=== PATIENT | female | born 1950 | race Caucasian/White ===

== ENCOUNTER 2023-10-09 04:14 | Emergency (ER) | payer MEDICARE, OTHER, SELFPAY ==
[2023-10-09 04:16] VITALS: BP 113/71; PULSE 93; RESP 19; TEMP 36.4; O2SAT 95; BMI 25.7
--- NOTE | 2023-10-09 04:45 | RAD_ITS ---
EXAM: XR CHEST, 2 VIEWS CLINICAL INDICATION: Dyspnea TECHNIQUE: Frontal and lateral views of the chest. COMPARISON: No relevant prior studies available. FINDINGS: LUNGS AND PLEURAL SPACES: The lungs are well-inflated. There are mildly coarse increased interstitial markings in the lower lung vela and mild increased lucency in the upper lung vela suggesting COPD. No pneumothorax. No effusion. HEART: Unremarkable. Cardiac silhouette not enlarged. MEDIASTINUM: Central airways and mediastinal contour are unremarkable. BONES/JOINTS: Unremarkable. No acute fracture. SOFT TISSUES: Unremarkable. RAD/Chest PA and Lateral IMPRESSION: Mild chronic-appearing lung changes. No acute intrathoracic abnormality. Electronically Signed: Rosario Chicas MD at 5:20 EDT ,
[2023-10-09] MEDS: MethylPREDNISolone 125 MG/2 ML Vial IV (05:07)
[2023-10-09] MEDS: Orphenadrine 60 MG/2 ML Ampul IV (05:07)
[2023-10-09 05:32] LABS: Absolute Lymphocyte Count 1.82 X10^3/uL (0.83-4.51); Absolute Neutrophil Count 4.5 X10^3/uL (2.0-7.7); Basophil# 0.06 X10^3/uL; Basophil% 0.8 % (0-1); Eosinophil# 0.12 X10^3/uL; Eosinophils% 1.6 % (0-5); Hematocrit 36.6 % (37-47); Hemoglobin 11.5 g/dL (12.0-15.0); Lymphocyte # 1.82 X10^3/ul (0.83-4.51); Lymphocyte % 24.6 % (19-41); Mean Corp Hgb Conc 31.4 g/dL (32-36); Mean Corpuscular Hgb 28.5 pg (27.0-32.0); Mean Corpuscular Volume 90.8 fL (81-99); Mean Platelet Vol. 8.9 fl (6.2-12.0); Monocyte# 0.78 X10^3/uL; Monocyte% 10.5 % (0-10); NRBC Flagged by Analyzer 0 % (0-5); Neutrophil # 4.53 X10^3/uL (2.7-7.7); Neutrophil % 61.3 % (47-70); Platelet Count 411 K/mm3 (150-450); RBC Distribution Width CV 14.7 % (11.6-14.6); RBC Distribution Width SD 49.1 fl (35.1-43.9); Red Blood Count 4.03 M/mm3 (4.2-5.4); White Blood Count 7.4 K/mm3 (4.4-11.0)
[2023-10-09 05:33] LABS: AST(SGOT) 48 U/L (15-37); Alanine Aminotransfer ALT/SGPT 37 U/L (13-56); Albumin, Serum 2.5 g/dL (3.2-5.0); Alkaline Phosphatase 45 U/L (45-117); Anion Gap 5 (5-15); BUN 14 mg/dL (7-18); BUN/Creat Ratio 17.5 RATIO (10-20); Bilirubin, Direct 0.08 mg/dL (0.00-0.30); CPK Total, Creatine Kinase 194 U/L (26-192); Calcium,Total 8.8 mg/dL (8.5-10.1); Chloride 106 mmol/L (98-107); EST Glomerular Filtration Rate 75 mL/min (>60); Est Glom Filt Rate - Afr Amer 90 mL/min (>60); Estimated Creatinine Clearance 55.77 ml/min; Globulin 3.9 g/dL (2.2-4.2); Glucose 111 mg/dL (74-106); Lipase 44 U/L (13-75); Potassium 4.2 mmol/L (3.5-5.1); Protein, Total 6.4 g/dL (6.4-8.2); Sodium Level 135 mmol/L (136-145)
[2023-10-09 05:38] LABS: Erythrocyte Sedimentation Rate 45 mm/hr (0-30)
[2023-10-09 05:45] VITALS: BP 107/62; PULSE 77; RESP 20
[2023-10-09 05:51] LABS: Acetaminophen (Tylenol) Level < 2.0 ug/mL (10.0-30.0); Salicylate < 1.7 mg/dL (2.8-20.0)
[2023-10-09 06:00] VITALS: BP 110/74; PULSE 79; RESP 21
--- NOTE | 2023-10-09 06:33 | EDS_ITS ---
HPI History of Present Illness Chief Complaint: General Illness Informant: patient and spouse/S.O. Narrative Narrative: Patient is a 73-year-old female with past medical history of hyperlipidemia. She states she was on rosuvastatin but stopped it 3 weeks ago secondary to back and leg pain. She states that since stopping it she is developed generalized muscle aches and feels like her legs have swollen as well. She denies any other medication but states that as she feels her symptoms have worsened despite stopping her medication she presents for evaluation [facility] Medical History no medical history Home Medications methocarbamol 500 mg tablet 500 mg PO 4X/DAY PRN Muscle pain/spasm #40 tabs 10/09/23 [Rx Last Taken Unknown] prednisone 10 mg tablet 10 mg PO DAILY #45 TABLETS 10/09/23 [Rx Last Taken Unknown] Allergy/AdvReac Type Severity Reaction Status Date / Time No Known Allergies Allergy Verified 10/09/23 05:15 Social History Smoking Status: Never smoker ROS [facility] ED Constitutional Constitutional ED: Denies chills or fever(s) ENT ENT ED: Denies sore throat Cardiovascular Cardiovascular: Reports other Details: Positive leg swelling ; Denies chest pain Respiratory/Chest Respiratory/Chest: Denies cough or dyspnea Gastrointestinal Gastrointestinal: Denies abdominal pain, diarrhea, nausea or vomiting Genitourinary Genitourinary ED: Denies dysuria Musculoskeletal Musculoskeletal: Reports myalgias Integumentary Denies rash Neurologic Neurologic: Denies headache(s) Hematologic/Lymphatic Hematologic/Lymphatic: Denies easy bleeding or easy bruising EXAM Physical Exam Const Vital Signs: 10/09/23 04:16 10/09/23 04:21 10/09/23 05:45 Temperature 97.6 F L Temperature Source Oral Pulse Rate 93 77 Respiratory Rate 19 H 20 H Respiratory Effort Normal Blood Pressure 113/71 107/62 Blood Pressure Mean 85 76 Pulse Ox 95 Oxygen Delivery Method Room Air 10/09/23 06:00 Temperature Temperature Source Pulse Rate 79 Respiratory Rate 21 H Respiratory Effort Blood Pressure 110/74 Blood Pressure Mean 85 Pulse Ox Oxygen Delivery Method Positive well nourished and well developed General Appearance ED: well developed; Negative for pallor HEENT Reports dry mucous membranes HEENT Narrative: No tongue or lip swelling no oral lesions no airway edema or compromise Patient's mucous membranes are dry and tacky without secondary changes to suggest infection Mouth ED: Yes dry mucous membranes Mouth: dry mucous membranes Eyes PERRL and EOMs intact bilaterally Neck supple Neck Narrative: No nuchal rigidity or meningeal signs noted Resp normal respiratory effort and clear to auscultation bilaterally Resp Narrative: No nasal flaring retractions tachypnea or accessory muscle use Cardio regular rate and regular rhythm Rate: other Other Details: Radial and carotid pulses are equal and symmetric GI normal to inspection, nondistended, normoactive bowel sounds, non-tender, non- distended and no masses GI Narrative: No voluntary guarding or rigidity or pulsatile mass Auscultation: normoactive bowel sounds Palpation: soft Extremity Extremity Narrative: Patient has trace pitting edema to the bilateral lower extremities that is equal and symmetric Negative Homans' sign bilaterally No obvious bony deformity or joint effusion Lower leg compartments are soft and compressible going against compartment syndrome Neuro oriented x3, CN's II-XII intact bilaterally and no sensory deficits noted Sensorium / Orientation: alert Motor Exam: strength 5/5 throughout Psych Psych Narrative: Patient has a nervous/anxious affect Skin no rashes or lesions noted and no wounds General Skin Exam: Negative for jaundice or pallor MDM MDM MDM Narrative Medical decision making narrative: Patient arrived to the ER with stable vitals. She reported myalgias and leg swelling and states this worsened after stopping her statin medication. Differential diagnosis is for electrolyte abnormality versus acute kidney injury versus rhabdomyolysis versus decreased protein and albumin values versus autoimmune disorder. Secondary to his basic labs were obtained. Patient does have elevation to her immature granulocytes as well as her monocytes and her ESR and CRP are elevated concerning for an inflammatory process. However her kidney function is normal as well as her liver enzymes going against acute kidney injury or ascites/cirrhosis as a cause of her swelling. Patient's protein level is low normal and her albumin is decreased indicating the swelling is most likely third spacing and secondary to a low protein and albumin level. She does not have findings consistent or concerning for DVT infection or compartment syndrome. At this time as workup is indicated and this is most likely inflammatory and not secondary to an infectious process or cirrhosis or heart failure I do not feel there is need for further workup on an inpatient basis. Patient be placed on a prednisone taper to help control the inflammatory process while she is fine with her family practice doctor to discuss further outpatient testing or referrals History & Record Review Discussion w/independent historian: Patient and Significant other Lab Data Labs: Laboratory Results - last 24 hr 10/09/23 10/09/23 04:28 05:05 WBC 7.4 RBC 4.03 L Hgb 11.5 L Hct 36.6 L MCV 90.8 MCH 28.5 MCHC 31.4 L RDW Std Deviation 49.1 H RDW Coeff of Shaniqua 14.7 H Plt Count 411 MPV 8.9 Immature Gran % (Auto) 1.200 H Neut % (Auto) 61.3 Lymph % (Auto) 24.6 Love % (Auto) 10.5 H Eos % (Auto) 1.6 Baso % (Auto) 0.8 Absolute Neuts (auto) 4.5 Absolute Lymphs (auto) 1.82 Nucleated RBC % 0 ESR 45 H Sodium 135 L Potassium 4.2 Chloride 106 Carbon Dioxide 24.0 Anion Gap 5 BUN 14 Creatinine 0.80 Estim Creat Clear Calc 55.77 Est GFR (MDRD) Af Amer 90 Est GFR (MDRD) Non-Af 75 BUN/Creatinine Ratio 17.5 Glucose 111 H Calcium 8.8 Total Bilirubin 0.50 Direct Bilirubin 0.08 AST 48 H ALT 37 Alkaline Phosphatase 45 Total Creatine Kinase 194 H C-React Prot Ext Range 24.90 H B-Natriuretic Peptide 23.0 Total Protein 6.4 Albumin 2.5 L Globulin 3.9 Lipase 44 Salicylates < 1.7 L Acetaminophen < 2.0 L Radiography Diagnostic Testing: Clinical Impression(s) from Imaging Studies Chest X-Ray 10/09/23 04:45 IMPRESSION: Mild chronic-appearing lung changes. No acute intrathoracic abnormality. Electronically Signed: Rosario Chicas MD at 5:20 EDT , Chest x-ray as interpreted by the emergency medicine physician reveals chronic lung changes without acute pneumonia pleural effusion or pneumothorax Discharge Plan Triage Chief Complaint: General Illness ED Provider: Aaron Horne Dx/Rx/DC Orders Clinical Impression: Myalgia, Hypoalbuminemia, Hyperlipidemia Instructions: ED Myalgias Prescriptions: New methocarbamol 500 mg tablet 500 mg PO 4X/DAY PRN (Reason: Muscle pain/spasm) Qty: 40 0RF prednisone 10 mg tablet 10 mg PO DAILY Qty: 45 0RF Rx Instructions: 5 po qd x 3 days, 4 po qd x 3 days, 3 po qd x 3 days, 2 po qd x 3 days, 1 po qd x 3 days Primary Care Provider: Karol Trevizo Referrals: Fady Robretson MD [Med Staff - Editorial Project Manager] - Karol Trevizo NP-C [Primary Care Provider] - Activity Restrictions/Additional Instructions: Please increase your protein intake as your labs show a low albumin level which is most likely the cause of your leg swelling. Take the steroid as directed as your labs show inflammatory changes which could be related to potential autoimmune disease and therefore you will need to follow-up with your doctor to have further testing obtained to further diagnosis. Do not take your meloxicam until you have finished the prednisone. Return to the ER should you have any further concerns Disposition Disposition: Home, Self Care
[2023-10-09 06:56] VITALS: BP 112/61; PULSE 85; RESP 24; TEMP 36.7; O2SAT 94
== END 2023-10-09 06:59 | disposition home or self-care (01) ==
PROVIDERS: Emergency Provider Emergency Medicine; PCP Nurse Practitioner Family; Visit Provider Emergency Medicine
DX: E88.09 Other disorders of plasma-protein metabolism, not elsewhere classified (principal); E78.5 Hyperlipidemia, unspecified; M79.10 Myalgia, unspecified site; R06.09 Other forms of dyspnea
CPT/HCPCS: 71046; 80048; 80076; 80329; 82550; 83690; 83880; 85025; 85652; 86140; 96374; 96375; 99283; A4216; G0480

== ENCOUNTER 2023-10-27 16:06 | Outpatient (CLI) | payer MEDICARE, OTHER, SELFPAY ==
--- NOTE | 2023-10-27 16:10 | RAD_ITS ---
EXAM: XR CHEST, 2 VIEWS CLINICAL INDICATION: sob TECHNIQUE: Frontal and lateral views of the chest. COMPARISON: October 09, 2023 FINDINGS: Worsening airspace disease involving the bilateral lower lobes in the interval, left worse than right. Blunting of the left costophrenic angle such that a small pleural effusion is not excluded. No pneumothorax. No other changes. RAD/Chest PA and Lateral IMPRESSION: Worsening bibasilar pneumonia suspected. Follow-up advised. Electronically Signed: Aaron Fernandez MD at 4:13 EDT ,
[2023-10-27 17:52] LABS: Absolute Lymphocyte Count 2.66 X10^3/uL (0.83-4.51); Absolute Neutrophil Count 7.7 X10^3/uL (2.0-7.7); Basophil# 0.08 X10^3/uL; Basophil% 0.7 % (0-1); Eosinophil# 0.11 X10^3/uL; Eosinophils% 0.9 % (0-5); Hematocrit 39.7 % (37-47); Hemoglobin 12.4 g/dL (12.0-15.0); Lymphocyte # 2.66 X10^3/ul (0.83-4.51); Lymphocyte % 22.6 % (19-41); Mean Corp Hgb Conc 31.2 g/dL (32-36); Mean Corpuscular Hgb 28.4 pg (27.0-32.0); Mean Corpuscular Volume 90.8 fL (81-99); Mean Platelet Vol. 9.4 fl (6.2-12.0); Monocyte% 9.3 % (0-10); NRBC Flagged by Analyzer 0 % (0-5); Neutrophil # 7.67 X10^3/uL (2.7-7.7); Neutrophil % 65.1 % (47-70); Platelet Count 429 K/mm3 (150-450); RBC Distribution Width CV 16.2 % (11.6-14.6); RBC Distribution Width SD 54.1 fl (35.1-43.9); Red Blood Count 4.37 M/mm3 (4.2-5.4); White Blood Count 11.8 K/mm3 (4.4-11.0)
[2023-10-27 18:03] LABS: Erythrocyte Sedimentation Rate 41 mm/hr (0-30)
[2023-10-27 18:22] LABS: Hemoglobin A1c 5.6 % (3.8-5.6)
[2023-10-27 18:58] LABS: ALB/GLOB Ratio 0.5 RATIO (0.9-2.4); AST(SGOT) 82 U/L (15-37); Alanine Aminotransfer ALT/SGPT 74 U/L (13-56); Albumin, Serum 2.4 g/dL (3.2-5.0); Alkaline Phosphatase 45 U/L (45-117); Anion Gap 7 (5-15); BUN 19 mg/dL (7-18); BUN/Creat Ratio 17.1 RATIO (10-20); CPK Total, Creatine Kinase 480 U/L (26-192); Calcium,Total 8.7 mg/dL (8.5-10.1); Chloride 103 mmol/L (98-107); Cholesterol 212 mg/dL (200); Creatinine, Serum 1.11 mg/dL (0.55-1.02); EST Glomerular Filtration Rate 51 mL/min (>60); Est Glom Filt Rate - Afr Amer 62 mL/min (>60); Ferritin 2005 ng/mL (8-252); Globulin 4.4 g/dL (2.2-4.2); Glucose 127 mg/dL (74-106); High Density Lipoprotein 29 mg/dL; Magnesium 2.2 mg/dL (1.6-2.6); Potassium 4.1 mmol/L (3.5-5.1); Protein, Total 6.8 g/dL (6.4-8.2); Sodium Level 134 mmol/L (136-145); Triglycerides 277 mg/dL; Very Low Density Lipoprotein 55 mg/dL (5-40)
[2023-10-29 13:08] LABS: CCP IgG Antibodies 5 units (0-19); Lyme Scn Total Ab w/Rflx Negative (Negative)
[2023-10-29 16:09] LABS: ANTINUCLEAR ANTIBODIES DIRECT Positive (Negative)
== END 2023-10-27 23:59 | disposition home or self-care (01) ==
LOC: MTLAB 16:07
PROVIDERS: PCP Family Medicine; Referring Provider Family Medicine; Visit Provider Family Medicine
DX: R06.02 Shortness of breath (principal); M79.10 Myalgia, unspecified site; R73.02 Impaired glucose tolerance (oral); R76.8 Other specified abnormal immunological findings in serum; R74.8 Abnormal levels of other serum enzymes
CPT/HCPCS: 36415; 71046; 80053; 80061; 82550; 82728; 83036; 83735; 85025; 85652; 86038; 86200; 86431; 86618

== ENCOUNTER → 2023-10-28 | Outpatient (CLI) | payer MEDICARE, OTHER, SELFPAY ==
[2023-10-28 17:58] LABS: Anion Gap 6 (5-15); BUN 18 mg/dL (7-18); CPK Total, Creatine Kinase 483 U/L (26-192); Calcium,Total 8.6 mg/dL (8.5-10.1); Chloride 104 mmol/L (98-107); EST Glomerular Filtration Rate 65 mL/min (>60); Est Glom Filt Rate - Afr Amer 79 mL/min (>60); Glucose 103 mg/dL (74-106); Potassium 4.7 mmol/L (3.5-5.1); Sodium Level 135 mmol/L (136-145)
[2023-10-28 18:50] LABS: Hepatitis B Surface Antibody Non-Reactive; Hepatitis B Surface Antigen Non-Reactive (Nonreactive); Hepatitis C Antibody Non-Reactive (Nonreactive)
[2023-10-30 10:41] LABS: ALB/GLOB Ratio 1.1 RATIO (0.9-2.4); AST(SGOT) 20 U/L (15-37); Alanine Aminotransfer ALT/SGPT 26 U/L (13-56); Albumin, Serum 3.9 g/dL (3.2-5.0); Alkaline Phosphatase 61 U/L (45-117); Globulin 3.5 g/dL (2.2-4.2); Protein, Total 7.4 g/dL (6.4-8.2)
== END | disposition home or self-care (01) ==
LOC: MFPLAB 15:21
PROVIDERS: PCP Family Medicine; Visit Provider Family Medicine
DX: R74.8 Abnormal levels of other serum enzymes (principal); R79.89 Other specified abnormal findings of blood chemistry; R94.4 Abnormal results of kidney function studies; R06.02 Shortness of breath
CPT/HCPCS: 36415; 80048; 82040; 82247; 82550; 84075; 84156; 84450; 84460; 86706; 86803; 87340

== ENCOUNTER → 2023-10-30 | Outpatient (CLI) | payer MEDICARE, OTHER, SELFPAY ==
--- NOTE | 2023-10-30 09:42 | ECHOD_ITS ---
Reason For Study: SOB Procedure This was a 2D Doppler, Color Flow transthoracic echocardiogram. The study was technically difficult. Exam performed in department. Left Ventricle Normal LV size. D shaped septum in diastole. Left ventricular systolic function is normal. The left ventricular ejection fraction is 55 %. Stage 1 diastolic dysfunction. No regional wall motion abnormalities noted. Right Ventricle Normal RV size. Normal systolic function. Atria Normal left atrium. Normal right atrium. Mitral Valve Bileaflet diffuse mitral valve thickening. Tricuspid Valve Normal tricuspid valve. Moderate (2+) tricuspid valve insufficiency. Pulmonary artery systolic pressure is 65 mmHg. Moderate pulmonary hypertension. Aortic Valve Trisinus/trileaflet aortic valve. Pulmonic Valve Normal pulmonic valve. Great Vessels Normal aortic root. The pulmonary artery is normal size. Inferior vena cava collapse with respiration. Pericardium/Pleural No pericardial effusion. MMode/2D Measurements & Calculations LVIDd: 4.1 cm IVSd: 0.96 cm LA dimension: 3.0 cm LVIDs: 2.7 cm LVPWd: 0.82 cm RVDd: 3.5 cm FS: 34.9 % LAV(MOD-bp): 42.1 ml LA A4 area: 17.2 cm2 RA A4 area: 11.2 cm2 LAV(MOD-bp) Indexed: 25.1 ml/m2 LAV(MOD-sp2): 38.8 ml LAV(MOD-sp4): 44.9 ml TAPSE: 2.3 cm Time Measurements MV dec time: 0.22 sec Doppler Measurements & Calculations MV E max viet: 60.6 cm/sec Lat Peak E' Viet: 9.7 cm/sec Med Peak E' Viet: 10.4 cm/sec MV A max viet: 98.1 cm/sec E/E' lat: 6.3 E/E' med: 5.8 MV E/A: 0.62 MV V2 max: 108.5 cm/sec MV P1/2t max viet: 76.3 cm/sec Ao V2 max: 156.0 cm/sec MV max P.7 mmHg MV P1/2t: 84.1 msec Ao max P.7 mmHg MV V2 mean: 58.1 cm/sec MV mean P.6 mmHg MV dec slope: 265.9 cm/sec2 MV V2 VTI: 20.7 cm MVA(P1/2t): 2.6 cm2 LV V1 max: 141.8 cm/sec PA V2 max: 102.1 cm/sec TR max viet: 394.4 cm/sec LV V1 max P.1 mmHg TR max P.2 mmHg ECHO/Echo Complete Interpretation Summary Normal LV size. Left ventricular systolic function is normal. The left ventricular ejection fraction is 55 %. Stage 1 diastolic dysfunction. Pulmonary artery systolic pressure is 65 mmHg. Moderate pulmonary hypertension. D shaped septum in diastole. Ordering Physician: Fady Robertson Referring Physician: Fady Robertson Performed By: Manjinder Guevara RCS
== END | disposition home or self-care (01) ==
LOC: CVS 09:39
PROVIDERS: PCP Family Medicine; Referring Provider Family Medicine; Visit Provider Family Medicine
DX: Z79.899 Other long term (current) drug therapy (principal); R06.02 Shortness of breath
CPT/HCPCS: 93306

== ENCOUNTER → 2023-11-12 | Outpatient (CLI) | payer MEDICARE, OTHER, SELFPAY ==
[2023-11-12 10:50] LABS: Anion Gap 5 (5-15); BUN 16 mg/dL (7-18); BUN/Creat Ratio 18.8 RATIO (10-20); CPK Total, Creatine Kinase 455 U/L (26-192); Calcium,Total 8.6 mg/dL (8.5-10.1); Chloride 107 mmol/L (98-107); Creatinine, Serum 0.85 mg/dL (0.55-1.02); EST Glomerular Filtration Rate 70 mL/min (>60); Est Glom Filt Rate - Afr Amer 84 mL/min (>60); Glucose 105 mg/dL (74-106); Sodium Level 137 mmol/L (136-145)
[2023-11-12 18:43] LABS: Hepatitis B Surface Antibody Non-Reactive; Hepatitis B Surface Antigen Non-Reactive (Nonreactive); Hepatitis C Antibody Non-Reactive (Nonreactive)
== END | disposition home or self-care (01) ==
LOC: LAB.FUTURE 08:24
PROVIDERS: PCP Family Medicine; Referring Provider Family Medicine; Visit Provider Family Medicine
DX: R79.89 Other specified abnormal findings of blood chemistry (principal); R74.8 Abnormal levels of other serum enzymes
CPT/HCPCS: 36415; 80048; 82550; 86706; 86803; 87340

== ENCOUNTER → 2023-11-18 | Outpatient (CLI) | payer MEDICARE, OTHER, SELFPAY ==
[2023-11-18 17:59] LABS: ALB/GLOB Ratio 0.5 RATIO (0.9-2.4); AST(SGOT) 83 U/L (15-37); Alanine Aminotransfer ALT/SGPT 57 U/L (13-56); Albumin, Serum 2.5 g/dL (3.2-5.0); Alkaline Phosphatase 61 U/L (45-117); Anion Gap 8 (5-15); BUN 11 mg/dL (7-18); BUN/Creat Ratio 14.1 RATIO (10-20); Calcium,Total 8.9 mg/dL (8.5-10.1); Chloride 105 mmol/L (98-107); Creatinine, Serum 0.78 mg/dL (0.55-1.02); EST Glomerular Filtration Rate 77 mL/min (>60); Est Glom Filt Rate - Afr Amer 93 mL/min (>60); Globulin 4.6 g/dL (2.2-4.2); Glucose 118 mg/dL (74-106); Potassium 4.3 mmol/L (3.5-5.1); Protein, Total 7.1 g/dL (6.4-8.2); Sodium Level 136 mmol/L (136-145)
[2023-11-21 11:09] LABS: Anti-Smooth Muscle ABS 17 Units (0-19); Ceruloplasmin 26.7 mg/dL (19.0-39.0); Copper, Serum or Plasma 105 ug/dL (80-158); Dilute Prothrombin Time (dPT) 36.2 sec (0.0-47.6); Dilute Russell Viper Venom 36.6 sec (0.0-47.0); Hexagonal Phase Phospholipid 2 2 sec (0-11); Interpretation Comment: (.); PTT-LA 51.2 sec (0.0-43.5); Thrombin Time 19.4 sec (0.0-23.0); dPT Confirm Ratio 0.99 Ratio (0.00-1.34)
[2023-11-22 17:06] LABS: Alpha Antitrypsin Serum 184 mg/dL (101-187); Anti-Centromere B Ab <0.2 AI (0.0-0.9); Anti-Chromatin <0.2 AI (0.0-0.9); Anti-Jo <0.2 AI (0.0-0.9); Anti-Mitochondrial AB <20.0 Units (0.0-20.0); Anti-Nuclear Antibody Test Positive (.); Anti-Scleroderma-70 AB <0.2 AI (0.0-0.9); Anti-dsDNA Ab <1 IU/mL (0-9); RNP Ab 1.8 AI (0.0-0.9); SJOGREN'S Anti-SS-A test > 8.0 AI (0.0-0.9); SJOGREN'S Anti-SS-B test > 8.0 AI (0.0-0.9); Smith Ab <0.2 AI (0.0-0.9)
== END | disposition home or self-care (01) ==
LOC: MFPLAB 15:35
PROVIDERS: PCP Family Medicine; Visit Provider Family Medicine
DX: R79.89 Other specified abnormal findings of blood chemistry (principal); R76.8 Other specified abnormal immunological findings in serum; R94.4 Abnormal results of kidney function studies
CPT/HCPCS: 36415; 80053; 82103; 82390; 82525; 83516; 86038; 86225; 86235

== ENCOUNTER → 2023-12-09 | Outpatient (CLI) | payer MEDICARE, OTHER, SELFPAY ==
--- NOTE | 2023-12-09 07:33 | US_ITS ---
STUDY: ABDOMINAL ULTRASOUND REASON FOR EXAM: Female, 73 years old. Other specified abnormal findings of blood chemistry TECHNIQUE: Transabdominal ultrasound was performed with real-time and static christina scale imaging. TECHNICAL QUALITY: Adequate. COMPARISON: None. FINDINGS: Liver: The liver measures 15.5 cm. There is increased echogenicity consistent with fatty infiltration. The bile ducts are within normal limits. There is hepatic color flow. The direction of portal flow is hepatopetal. There is a 2.4 cm x 2.2 cm x 2.4 cm cyst in the inferior aspect of the right lobe of the liver. Gallbladder: Normal distended gallbladder. The gallbladder wall measures 1.4 mm. There is a negative sonographic Vela''s sign. There is no pericholecystic fluid. There are no gallstones. Sludge is seen within the gallbladder lumen. Common Bile Duct (C.B.D.): The common bile duct measures 4.6 mm. Pancreas: Normal size of the head, body and tail of the pancreas. There is normal echogenicity of the pancreas. There is no demonstrated pancreatic mass or cyst. Spleen: Normal size of the spleen. The spleen measures 9.1 cm x 4.4 cm x 3.2 cm. Right Kidney: Normal size of the right kidney. The right kidney measures 10.3 cm x 4.3 cm x 4.2 cm. Normal renal cortex. The right cortex measures 1.4 cm. There is no demonstrated renal mass or cyst. There is no right hydronephrosis. Left Kidney: Normal size of the left kidney. The left kidney measures 10.8 cm x 4.5 cm x 4.2 cm. Normal renal cortex. The left cortex measures 1.3 cm. There is no demonstrated renal mass or cyst. There is no left hydronephrosis. Aorta: Unremarkable. I.V.C.: The IVC is patent. There is no ascites. US/Abdomen Complete IMPRESSION: 2.4 cm x 2.2 cm x 2.4 cm cyst in the inferior aspect of the right lobe of the liver. Sludge is seen within the gallbladder lumen. Electronically Signed: Hemant Carrasquillo MD at 11:37 EDT ,
== END | disposition home or self-care (01) ==
LOC: US 07:32
PROVIDERS: PCP Family Medicine; Referring Provider Family Medicine; Visit Provider Family Medicine
DX: R79.89 Other specified abnormal findings of blood chemistry (principal)
CPT/HCPCS: 76700

== ENCOUNTER → 2023-12-14 | Outpatient (CLI) | payer MEDICARE, OTHER, SELFPAY | END | disposition home or self-care (01) | LOC: PSN 07:48 | PROVIDERS: PCP Family Medicine | DX: R06.00 Dyspnea, unspecified (principal) | CPT/HCPCS: 94060; 94726; 94729 ==

== ENCOUNTER → 2023-12-16 | Outpatient (CLI) | payer MEDICARE, OTHER, SELFPAY ==
--- NOTE | 2023-12-16 06:31 | CT_ITS ---
STUDY: CT CHEST, ABDOMEN T PELVIS WITH CONTRAST REASON FOR EXAM: Female, 73 years old. Myositis, unspecified. 3 month history of 27 pound weight loss. Weakness. RADIATION DOSAGE (If Supplied By Facility): CTDIvol = ( 9.94 ) mGy, DLP = ( 773.21 ) mGycm TECHNIQUE: Transaxial imaging was performed following intravenous administration of Oral and amp; IV Readi-CAT and amp; 100mL Isovue-370. Multiplanar coronal and sagittal images were reformatted. Individualized dose optimization techniques were used for this CT. COMPARISON: No relevant priors. FINDINGS: CHEST Mild heterogeneous enlargement of the lower pole of the left lobe of the thyroid. Bibasilar airspace disease superimposed on chronic interstitial scarring involving both upper and lower lobes. Small left pleural effusion. Normal heart and pericardium. No significant coronary artery calcification is seen. Normal mediastinum. Normal hilar regions. Normal unenhanced pulmonary arteries. Normal aorta arch and descending thoracic aorta. There are multi-level degenerative changes of the thoracic spine. ABDOMEN There is decreased attenuation of the liver consistent with steatosis. There is a 2.2 cm x 1.6 cm cyst in the inferior medial aspect of the right lobe of the liver. Mild degree of distention of the gallbladder. Normal spleen. Normal pancreas. Normal bilateral adrenal glands. Normal right kidney. Normal left kidney. Normal visualized stomach. Normal small intestine. There are multiple colonic diverticula consistent with diverticulosis. The appendix is visualized and appears normal. There is scattered atherosclerotic calcification of the abdominal aorta, without a demonstrated aneurysm. Normal inferior vena cava. Normal retroperitoneum. Normal abdominal wall. There are mild degenerative changes of the visualized lumbar spine. PELVIS Normal urinary bladder. Endometrial thickening measuring 5.8 mm. Clinical correlation suggested. There is no pelvic fluid. There is no pelvic lymphadenopathy or mass lesion. There is diffuse atherosclerotic calcification of the pelvic arteries. CT/CT Chest, Abd, Pel w/Contrast IMPRESSION: Findings suggestive of a pulmonary scarring with bibasilar atelectasis and/or infiltrates worse on the left side with a small left pleural effusion. Fatty infiltration of the liver. 2.2 cm x 1.6 cm cyst in the inferior medial aspect of the right lobe of the liver. Mild distention of the gallbladder. Endometrial thickening for the patient''s age. Clinical correlation recommended. Electronically Signed: Hemant Carrasquillo MD at 13:07 EDT ,
== END | disposition home or self-care (01) ==
LOC: CT 06:26
PROVIDERS: PCP Family Medicine
DX: M60.9 Myositis, unspecified (principal)
CPT/HCPCS: 71260; 74177; Q9967

== ENCOUNTER → 2023-12-18 | Outpatient (CLI) | payer MEDICARE, OTHER, SELFPAY ==
--- NOTE | 2023-12-18 09:18 | RAD_ITS ---
STUDY: X-RAY CHEST REASON FOR EXAM: Female, 73 years old. BIBASILAR CRACKLES TECHNIQUE: PA and lateral views of the chest. COMPARISON: Comparison is made with prior study dated October 27, 2023. FINDINGS: Stable appearance of the increased interstitial markings with areas of confluence involving both lungs worse in the lower lobes suggestive of chronic scarring. Possible superimposed atelectasis and/or infiltrate at the left lung base. Blunting of the costophrenic angles posteriorly. Normal size heart. Normal mediastinum and caro. Normal visualized pulmonary arteries. There is atherosclerotic calcification of the aortic arch with tortuosity. There are diffuse degenerative changes of the visualized thoracic spine. Normal visualized ribs, clavicles, and shoulders. There is no demonstrated abnormality of the visualized soft tissue structures of the upper abdomen. RAD/Chest PA and Lateral IMPRESSION: Findings suggestive of chronic scarring worse at the lung bases and possible left basilar atelectasis and/or early infiltrate. Electronically Signed: Hemant Carrasquillo MD at 14:01 EDT ,
== END | disposition home or self-care (01) ==
LOC: MTRAD 09:17
PROVIDERS: PCP Family Medicine; Referring Provider Family Medicine; Visit Provider Family Medicine
DX: R09.89 Other specified symptoms and signs involving the circulatory and respiratory systems (principal)
CPT/HCPCS: 71046

== ENCOUNTER 2024-01-07 14:25 | Inpatient (IN) | payer MEDICARE, OTHER, SELFPAY ==
[2024-01-07] VITALS (19 sets, daily range): BP systolic 124–144; BP diastolic 72–93; PULSE 70–98; RESP 16–34; TEMP 35.5–36.7; O2SAT 97–100; BMI 23.2; BMI 23.3
[2024-01-07 15:43] LABS: Absolute Lymphocyte Count 0.31 X10^3/uL (0.83-4.51); Absolute Neutrophil Count 6.9 X10^3/uL (2.0-7.7); Basophil# 0.02 X10^3/uL; Basophil% 0.3 % (0-1); Hematocrit 35.7 % (37-47); Hemoglobin 11.3 g/dL (12.0-15.0); Lymphocyte # 0.31 X10^3/ul (0.83-4.51); Lymphocyte % 4.2 % (19-41); Mean Corp Hgb Conc 31.7 g/dL (32-36); Mean Corpuscular Hgb 29.4 pg (27.0-32.0); Mean Corpuscular Volume 92.7 fL (81-99); Monocyte# 0.14 X10^3/uL; Monocyte% 1.9 % (0-10); NRBC Flagged by Analyzer 0.3 % (0-5); Neutrophil # 6.85 X10^3/uL (2.7-7.7); Neutrophil % 91.7 % (47-70); POSITIVE DIFFERENTIAL YES; POSITIVE MORPHOLOGY YES; Platelet Count 121 K/mm3 (150-450); RBC Distribution Width CV 25.4 % (11.6-14.6); Red Blood Count 3.85 M/mm3 (4.2-5.4); White Blood Count 7.5 K/mm3 (4.4-11.0)
[2024-01-07 16:21] LABS: ALB/GLOB Ratio 0.7 RATIO (0.9-2.4); AST(SGOT) 103 U/L (15-37); Alanine Aminotransfer ALT/SGPT 68 U/L (13-56); Albumin, Serum 2.8 g/dL (3.2-5.0); Alkaline Phosphatase 48 U/L (45-117); Anion Gap 17 (5-15); BUN 123 mg/dL (7-18); BUN/Creat Ratio 16.8 RATIO (10-20); Calcium,Total 8.8 mg/dL (8.5-10.1); Chloride 93 mmol/L (98-107); Creatinine, Serum 7.34 mg/dL (0.55-1.02); EST Glomerular Filtration Rate 6 mL/min (>60); Est Glom Filt Rate - Afr Amer 7 mL/min (>60); Globulin 4.2 g/dL (2.2-4.2); Glucose 146 mg/dL (74-106); Potassium 6.5 mmol/L (3.5-5.1); Sodium Level 125 mmol/L (136-145)
[2024-01-07 16:22] LABS: Differential Indicated SCAN CRITERIA MET
--- NOTE | 2024-01-07 16:22 | EKG12_ITS ---
Test Reason : Blood Pressure : / mmHG Vent. Rate : 069 BPM Atrial Rate : 069 BPM P-R Int : 134 ms QRS Dur : 090 ms QT Int : 388 ms P-R-T Axes : 074 025 065 degrees QTc Int : 415 ms Normal sinus rhythm Low voltage QRS Borderline ECG Confirmed by JUSTINO LYNN, TAMMIE ([id number]), state editor JODIE JANE ([id number]) on 01/13/2024 10:38:28 A M Referred By: Confirmed By:CARLOS BADILLO MD
--- NOTE | 2024-01-07 16:40 | RAD_ITS ---
STUDY: X-RAY CHEST REASON FOR EXAM: Female, 73 years old. dyspnea TECHNIQUE: Frontal and lateral views of the chest. COMPARISON: Chest x-ray December 18, 2023 FINDINGS: Left greater than right interstitial opacities unchanged. There is no demonstrated pleural abnormality. Normal size heart. Normal mediastinum and caro. Normal visualized pulmonary arteries. Normal visualized aortic arch and descending thoracic aorta. Normal visualized thoracic spine. Normal visualized ribs, clavicles, and shoulders. There is no demonstrated abnormality of the visualized soft tissue structures of the upper abdomen. RAD/Chest PA and Lateral IMPRESSION: Left greater than right interstitial opacities unchanged Electronically Signed: Chuy Curtis MD at 17:46 EDT ,
[2024-01-07 16:41] LABS: Anisocytosis 2+; Differential Comment SCANNED; Macrocytosis 1+; Microcytosis 1+
--- NOTE | 2024-01-07 16:51 | EDS_ITS ---
HPI <MILTON Little - Last Filed: 01/07/24 19:08> History of Present Illness Chief Complaint: Weakness Narrative Narrative: 73-year-old female with past medical history of hyperlipidemia, Sjogren's disease, pulmonary hypertension presents with months of progressive shortness of breath and weakness. She states it started early 2023. She saw a home sales service professional and was diagnosed with Sjogren's disease and takes prednisone 50 mg daily. She is gradually gotten worse and over the last week is having difficulty standing and ambulating on her own due to weakness. Her is helping her around the house. She is eating and drinking a small amount. She h as no nausea or vomiting. She states she typically has a loose bowel movement daily but had a formed bowel movement today and some pain with defecation and noticed bright red blood on the toilet paper. There is no heavy bleeding or blood clots. No blood thinners. She had a colonoscopy at [place] 1 year ago she reports was normal. [facility] <MILTON Little - Last Filed: 01/07/24 19:08> [facility] Medical History Cataract Mitral valve regurgitation Home Medications ?Medication ?Instructions ?Recorded ?Last Taken ?Type prednisone 10 mg tablet 10 mg PO DAILY #45 TABLETS 10/09/23 01/07/24 Rx acetaminophen 650 mg 1,300 mg PO Q12H PRN pain 01/07/24 01/07/24 History tablet,extended release (8 Hour Pain Reliever) albuterol sulfate 90 mcg/actuation 2 puff inhalation Q4H PRN 01/07/24 01/07/24 History aerosol inhaler shortness of breath or wheezing cholecalciferol (vitamin D3) 50 50 mcg PO DAILY 01/07/24 01/06/24 History mcg (2,000 unit) capsule (D3-2000) furosemide 40 mg tablet 40 mg PO DAILY PRN edema 01/07/24 01/07/24 History ibuprofen 200 mg tablet 400 mg PO Q6H PRN pain 01/07/24 Unknown History magnesium oxide 400 mg PO DAILY 01/07/24 01/06/24 History peg 400-propylene glycol 0.4 %-0.3 1 drp EACH EYE TID PRN dry eye(s) 01/07/24 01/07/24 History % eye drops (Systane (propylene glycol)) sulfamethoxazole 800 1 tab PO MOWEFR 01/07/24 01/06/24 History mg-trimethoprim 160 mg tablet Allergy/AdvReac Type Severity Reaction Status Date / Time No Known Allergies Allergy Verified 01/07/24 14:26 Social History Smoking Status: Never smoker ROS <MILTON Little - Last Filed: 01/07/24 19:08> ROS ED ROS Narrative Constitutional: Negative for fever, chills. CVS: Negative for chest pains. Respiratory: Positive for shortness of breath. GI: Negative for abdominal pain, nausea, vomiting, diarrhea. EXAM <MILTON Little - Last Filed: 01/07/24 19:08> Physical Exam Narrative Exam Narrative: CONST: Patient sitting in no acute distress. EYES: Normal inspection. ENT: Normal inspection, dry mucous membranes. NECK: Normal inspection. RESP: No respiratory distress, CTAB. CVS: Regular rate and rhythm, no murmur, no gallop. ABD: Soft and nontender, no guarding or rebound, nondistended. SKIN: Color normal, no rash, warm, dry, intact. EXTREMITIES: Normal appearance, no pedal edema. NEURO: Alert and answering questions appropriately. PSYCH: Normal affect. Const Vital Signs: 01/07/24 14:26 01/07/24 16:29 01/07/24 16:48 Temperature 96.3 F L Temperature Source Temporal Pulse Rate 82 73 Respiratory Rate 16 16 Respiratory Effort Short of Breath Respiratory Depth Respiratory Pattern Normal Blood Pressure 142/83 H 124/75 H Blood Pressure Mean 102 91 Pulse Ox 100 100 Oxygen Delivery Method Room Air Room Air 01/07/24 16:49 01/07/24 16:51 01/07/24 17:00 Temperature Temperature Source Pulse Rate 71 Respiratory Rate 20 H Respiratory Effort Short of Breath Respiratory Depth Normal Respiratory Pattern Normal Blood Pressure 144/86 H Blood Pressure Mean 105 Pulse Ox 100 100 Oxygen Delivery Method Room Air Room Air 01/07/24 17:00 01/07/24 17:15 01/07/24 17:30 Temperature Temperature Source Pulse Rate 70 89 95 Respiratory Rate 22 H 23 H 23 H Respiratory Effort Respiratory Depth Respiratory Pattern Blood Pressure 125/86 H Blood Pressure Mean 94 Pulse Ox 99 Oxygen Delivery Method 01/07/24 17:41 01/07/24 17:45 01/07/24 17:50 Temperature 98.1 F Temperature Source Pulse Rate 98 96 90 Respiratory Rate 29 H 34 H 20 H Respiratory Effort Respiratory Depth Respiratory Pattern Blood Pressure 127/79 H 127/79 H Blood Pressure Mean 95 95 Pulse Ox 100 100 100 Oxygen Delivery Method Room Air 01/07/24 18:00 01/07/24 18:00 Temperature Temperature Source Pulse Rate 95 Respiratory Rate 24 H Respiratory Effort Respiratory Depth Respiratory Pattern Blood Pressure 130/79 H 130/79 H Blood Pressure Mean 95 95 Pulse Ox 99 Oxygen Delivery Method Room Air Room Air <Maynor Russell MD - Last Filed: 01/07/24 19:40> Physical Exam Const Vital Signs: 01/07/24 14:26 01/07/24 16:29 01/07/24 16:48 Temperature 96.3 F L Temperature Source Temporal Pulse Rate 82 73 Respiratory Rate 16 16 Respiratory Effort Short of Breath Respiratory Depth Respiratory Pattern Normal Blood Pressure 142/83 H 124/75 H Blood Pressure Mean 102 91 Pulse Ox 100 100 Oxygen Delivery Method Room Air Room Air 01/07/24 16:49 01/07/24 16:51 01/07/24 17:00 Temperature Temperature Source Pulse Rate 71 Respiratory Rate 20 H Respiratory Effort Short of Breath Respiratory Depth Normal Respiratory Pattern Normal Blood Pressure 144/86 H Blood Pressure Mean 105 Pulse Ox 100 100 Oxygen Delivery Method Room Air Room Air 01/07/24 17:00 01/07/24 17:15 01/07/24 17:30 Temperature Temperature Source Pulse Rate 70 89 95 Respiratory Rate 22 H 23 H 23 H Respiratory Effort Respiratory Depth Respiratory Pattern Blood Pressure 125/86 H Blood Pressure Mean 94 Pulse Ox 99 Oxygen Delivery Method 01/07/24 17:41 01/07/24 17:45 01/07/24 17:50 Temperature 98.1 F Temperature Source Pulse Rate 98 96 90 Respiratory Rate 29 H 34 H 20 H Respiratory Effort Respiratory Depth Respiratory Pattern Blood Pressure 127/79 H 127/79 H Blood Pressure Mean 95 95 Pulse Ox 100 100 100 Oxygen Delivery Method Room Air 01/07/24 18:00 01/07/24 18:00 Temperature Temperature Source Pulse Rate 95 Respiratory Rate 24 H Respiratory Effort Respiratory Depth Respiratory Pattern Blood Pressure 130/79 H 130/79 H Blood Pressure Mean 95 95 Pulse Ox 99 Oxygen Delivery Method Room Air Room Air [facility] <MILTON Little - Last Filed: 01/07/24 19:08> [facility] Narrative Medical decision making narrative: History gathered from: Patient and spouse Wide differential for weakness includes pneumonia, UTI, electrolyte abnormality, RIN, anemia Consults: Hospitalist, nephrology Patient presents with months of progressive dyspnea on exertion and weakness. She states she is undergoing testing with rheumatology and is on prednisone 50 mg daily. She also had a hard bowel movement today with bright red rectal bleeding. She appears chronically ill but nontoxic. Vital signs stable. Her cardiopulmonary exam is normal. Abdomen soft and nontender. She has a small external hemorrhoid with dried blood around it which was likely the source of bleeding. There is no stool in the rectum. White count is normal at 7.5, hemoglobin 11.3. She has significant electrolyte abnormalities and acute renal failure with sodium of 125, potassium 6.5, BUN 123, creatinine 7.34 (previously 0.78 in October 2023). Glucose is 146, CO2 15, anion gap 17. There is mild chronic transaminitis. EKG is normal sinus rhythm at 69 bpm with no hyperkalemic changes. I treated her hyperkalemia with IV fluids, albuterol, insulin and dextrose. I spoke with the hospitalist for admission and recommended I reach out to nephrology. Dr. Ortiz also recommended ordering bicarbonate and a CT of the abdomen/pelvis without contrast. Imaging shows small bilateral pleural effusions and congestion but no acute findings of the renal system or signs of retention. Patient was admitted to the PCU. Lab Data Attestation: I reviewed the patient's lab results. Labs: Laboratory Results - last 24 hr 01/07/24 01/07/24 15:31 17:03 WBC 7.5 RBC 3.85 L Hgb 11.3 L Hct 35.7 L MCV 92.7 MCH 29.4 MCHC 31.7 L RDW Std Deviation 81.0 H RDW Coeff of [place] 25.4 H Plt Count 121 L Immature Gran % (Auto) 1.900 H Neut % (Auto) 91.7 H Lymph % (Auto) 4.2 L [place] % (Auto) 1.9 Eos % (Auto) 0.0 Baso % (Auto) 0.3 Absolute Neuts (auto) 6.9 Absolute Lymphs (auto) 0.31 L Nucleated RBC % 0.3 Differential Comment SCANNED Anisocytosis 2+ Microcytosis 1+ Macrocytosis 1+ Sodium 125 L Potassium 6.5 H* Chloride 93 L Carbon Dioxide 15.0 L Anion Gap 17 H BUN 123 H* Creatinine 7.34 H Est GFR (MDRD) Af Amer 7 L Est GFR (MDRD) Non-Af 6 L BUN/Creatinine Ratio 16.8 Glucose 146 H Calcium 8.8 Total Bilirubin 1.00 AST 103 H ALT 68 H Alkaline Phosphatase 48 Total Protein 7.0 Albumin 2.8 L Globulin 4.2 Albumin/Globulin Ratio 0.7 L Urine Color Yellow Urine Clarity Sl. Cloudy Urine pH 5.0 Ur Specific [place] 1.020 Urine Protein 500 H Urine Glucose (UA) Normal Urine Ketones 5 H Urine Occult Blood 250 H Urine Nitrite Negative Urine Bilirubin Negative Urine Urobilinogen Normal Ur Leukocyte Esterase Negative Urine RBC 0-5 SEEN Urine WBC 0 SEEN Ur Squamous Epith Cells 0 SEEN Urine Bacteria 0 SEEN Urine Mucus 0 SEEN Radiography Diagnostic Testing: Clinical Impression(s) from Imaging Studies Chest X-Ray 01/07/24 16:40 IMPRESSION: Left greater than right interstitial opacities unchanged Electronically Signed: Chuy Curtis MD at 17:46 EDT Reading Location ID and State: [facility] / [place] Tel , Service support , Abdomen/Pelvis CT 01/07/24 17:56 IMPRESSION: Small bilateral pleural effusions and bibasilar congestion. Ileus. Electronically Signed: Chuy Curtis MD at 19:01 EDT , ED attending interpretation of 2 view chest x-ray shows chronic lung changes that appears similar to previous. EKG Initial EKG: Attestation: I personally reviewed and interpreted this EKG as follows: Interpretation: Sinus Rhythm and No Acute Injury Pattern Comments: Normal sinus rhythm at 69 bpm Normal intervals, no acute ischemic changes No hyperkalemic changes <Maynor Russell MD - Last Filed: 01/07/24 19:40> [facility] Lab Data Labs: Laboratory Results - last 24 hr 01/07/24 01/07/24 15:31 17:03 WBC 7.5 RBC 3.85 L Hgb 11.3 L Hct 35.7 L MCV 92.7 MCH 29.4 MCHC 31.7 L RDW Std Deviation 81.0 H RDW Coeff of [place] 25.4 H Plt Count 121 L Immature Gran % (Auto) 1.900 H Neut % (Auto) 91.7 H Lymph % (Auto) 4.2 L [place] % (Auto) 1.9 Eos % (Auto) 0.0 Baso % (Auto) 0.3 Absolute Neuts (auto) 6.9 Absolute Lymphs (auto) 0.31 L Nucleated RBC % 0.3 Differential Comment SCANNED Anisocytosis 2+ Microcytosis 1+ Macrocytosis 1+ Sodium 125 L Potassium 6.5 H* Chloride 93 L Carbon Dioxide 15.0 L Anion Gap 17 H BUN 123 H* Creatinine 7.34 H Est GFR (MDRD) Af Amer 7 L Est GFR (MDRD) Non-Af 6 L BUN/Creatinine Ratio 16.8 Glucose 146 H Calcium 8.8 Total Bilirubin 1.00 AST 103 H ALT 68 H Alkaline Phosphatase 48 Total Protein 7.0 Albumin 2.8 L Globulin 4.2 Albumin/Globulin Ratio 0.7 L Urine Color Yellow Urine Clarity Sl. Cloudy Urine pH 5.0 Ur Specific [place] 1.020 Urine Protein 500 H Urine Glucose (UA) Normal Urine Ketones 5 H Urine Occult Blood 250 H Urine Nitrite Negative Urine Bilirubin Negative Urine Urobilinogen Normal Ur Leukocyte Esterase Negative Urine RBC 0-5 SEEN Urine WBC 0 SEEN Ur Squamous Epith Cells 0 SEEN Urine Bacteria 0 SEEN Urine Mucus 0 SEEN Radiography Diagnostic Testing: Clinical Impression(s) from Imaging Studies Chest X-Ray 01/07/24 16:40 IMPRESSION: Left greater than right interstitial opacities unchanged Electronically Signed: Chuy Curtis MD at 17:46 EDT , Abdomen/Pelvis CT 01/07/24 17:56 IMPRESSION: Small bilateral pleural effusions and bibasilar congestion. Ileus. Electronically Signed: Chuy Curtis MD at 19:01 EDT , Management Discussion w/another healthcare provider: Hospitalist (Dr. Garcia) and [employer] Attendant ([employer]) Treatment and Re-Evaluation :: Dr. Russell: I have personally performed a face to face assessment of the patient and have reviewed the JALEEL Note. I performed a substantive portion of the visit including all aspects of the following. My jenkins findings include: History is progressive generalized weakness times months, reported difficulty swallowing as well. Exam is afebrile. Vital signs noted. Tacky mucous membranes. Regular rate and rhythm. Lungs clear to auscultation bilaterally. Abdomen soft nontender with normoactive bowel sounds. Neurological examination nonfocal and lateralizing. Medical Decision Making: Check labs. IV fluids. Review of laboratory work reveals acute kidney injury/acute renal failure with hyponatremia. John with hospitalist for request discussion with nephrology. No need for emergent dialysis. Admit in stable condition. Other additions or changes: [None] Discharge Plan Triage Chief Complaint: Weakness Other Complaint: GI Bleed ED Midlevel Provider: Milena Carpenter ED Provider: Maynor Russell Dx/Rx/DC Orders Clinical Impression: Acute renal failure, Acute hyperkalemia, Generalized weakness, Chronic dyspnea, Bright red rectal bleeding, External hemorrhoid, Hyponatremia Primary Care Provider: Fady Robertson
[2024-01-07] MEDS: 0.9% Normal Saline (1000mL) 1,000 ML 999 ML IV (17:01)
[2024-01-07] MEDS: Albuterol *CONC* 2.5mg/0.5mL VIAL.NEB. 10 MG INHALATION (17:01)
[2024-01-07 17:09] LABS: Bacteria 0 SEEN /hpf (None Seen); Mucous, Urine 0 SEEN /hpf (<or=2+); Squamous Epithelial Cells - UA 0 SEEN /hpf (5-10); White Blood Cells 0 SEEN /hpf (0-5)
[2024-01-07 17:12] LABS: Color, Urine Yellow (Yellow); Glucose, Dipstick Normal (Normal); Ketone-Dipstick 5 mg/dl (Negative); Leukocyte Esterase-Dipstick Negative /ul (Negative); Nitrite-Dipstick Negative (Negative); Occult Blood-Urine 250 /ul (Negative); Protein-Dipstick 500 mg/dl (Negative); Urine Bilirubin Dipstick Negative (Negative); Urine Clarity Sl. Cloudy (Clear); Urine Urobilinogen Normal (Normal)
[2024-01-07] MEDS: Dextrose 10%-Water 250 ML 999 ML IV (17:16)
[2024-01-07] MEDS: Insulin Lispro 10 UNIT in Syringe 0 ML 6 UNIT IV (17:17)
[2024-01-07 17:43] LABS: Red Blood Cells-Urine 0-5 SEEN /hpf (0-5)
--- NOTE | 2024-01-07 17:56 | CT_ITS ---
STUDY: CT ABDOMEN AND PELVIS WITHOUT CONTRAST REASON FOR EXAM: Female, 73 years old. renal failure RADIATION DOSAGE (If Supplied By Facility): CTDIvol = ( 6.05 ) mGy, DLP = ( 332.61 ) mGycm TECHNIQUE: Transaxial images were obtained from the dome of the diaphragm to the symphysis pubis without oral contrast, and without intravenous contrast. Sagittal and coronal images were reconstructed. Individualized dose optimization techniques were used for this CT. The protocol utilizes one or more of the following dose reduction techniques: automated exposure control, adjustment of mA and/or kV according to patient size,and/or use of iterative reconstruction technique. COMPARISON: Abdominal ultrasound 08/10/2023. FINDINGS: Small bilateral pleural effusions and bibasilar congestion. The visualized portions of the heart are within normal limits. 2 cm simple cyst right lobe of the liver. Normal gallbladder and extrahepatic biliary system. Normal spleen. Normal pancreas. Normal bilateral adrenal glands. Normal right kidney. Normal left kidney. Normal visualized stomach. A few air-fluid levels are noted in the small bowel. Colonic diverticulosis. The appendix is visualized and appears normal. Normal abdominal aorta. Normal inferior vena cava. Normal retroperitoneum. Normal urinary bladder. Uterus normal. Fat-containing umbilical hernia. Normal osseous structures. CT/Abdomen/Pelvis without Cont IMPRESSION: Small bilateral pleural effusions and bibasilar congestion. Ileus. Electronically Signed: Chuy Curtis MD at 19:01 EDT ,
--- NOTE | 2024-01-07 18:16 | PCM.HP.STD ---
HPI - General General Date of Admission: 01/07/24 Date of Service: 01/07/24 Chief Complaint: Complaint of weakness for 4 to 6 months. Noticed nosebleeding bartering blood in the stool. HPI Narrative BUCKY GOMEZ, is a 73 F came to ED when she had noticed nosebleeding on nose blowing and bright red blood in the stool and thought it is hemorrhoidal bleed. Before that for last 4 to 6 months, she is having generalized weakness, difficulty in ambulation, could not lift small things and dyspnea on exertion. She was diagnosed with Sjogren syndrome and follows consulting sales executive in [place]. I feel like she might have scleroderma as progressively her mouth is opening less, difficulty in swallowing, feels food stuck in mouth or chest and needs more water to push it down. She can stand up and walk small distances on walker within the home and gets very short of breath and had to sit down. In ED, she was found to have high BUN, creatinine, hyperkalemia and hyponatremia. She is very weak with dyspnea on minimal exertion, needs assistance for standing and walking. Twelve-lead EKG shows normal sinus rhythm at 69 beats minute, QTc 415 ms. No tall or tenting of T waves on EKG. Patient was given hyperkalemia cocktail and consulted and further admitted in PCU after discussion with nuclear control room operator [facility] Medical History Cataract Mitral valve regurgitation Home Medications ?Medication ?Instructions ?Recorded ?Last Taken ?Type prednisone 10 mg tablet 10 mg PO DAILY #45 TABLETS 10/09/23 01/07/24 Rx acetaminophen 650 mg 1,300 mg PO Q12H PRN pain 01/07/24 01/07/24 History tablet,extended release (8 Hour Pain Reliever) albuterol sulfate 90 mcg/actuation 2 puff inhalation Q4H PRN 01/07/24 01/07/24 History aerosol inhaler shortness of breath or wheezing cholecalciferol (vitamin D3) 50 50 mcg PO DAILY 01/07/24 01/06/24 History mcg (2,000 unit) capsule (D3-2000) furosemide 40 mg tablet 40 mg PO DAILY PRN edema 01/07/24 01/07/24 History ibuprofen 200 mg tablet 400 mg PO Q6H PRN pain 01/07/24 Unknown History magnesium oxide 400 mg PO DAILY 01/07/24 01/06/24 History peg 400-propylene glycol 0.4 %-0.3 1 drp EACH EYE TID PRN dry eye(s) 01/07/24 01/07/24 History % eye drops (Systane (propylene glycol)) sulfamethoxazole 800 1 tab PO MOWEFR 01/07/24 01/06/24 History mg-trimethoprim 160 mg tablet Allergy/AdvReac Type Severity Reaction Status Date / Time No Known Allergies Allergy Verified 01/07/24 14:26 Social History Smoking Status: Never smoker ROS ROS Narrative 14 system ROS collected from patient and as patient is very weak and fatigued and short of breath on even conversation. Physical exam Constitutional: Reports fatigue and weakness. No fever. HEENT: Reports systems reviewed and no addt'l complaints, except as documented Respiratory/Chest: No acute shortness of breath or respiratory distress or wheezing. CVS: No chest pain or tightness. Gastrointestinal: Hematochezia 1 time today. Mild chronic constipation. Dysphagia as described in HPI. Genitourinary: Denies burning urination or new urinary tract symptoms Musculoskeletal: Difficulty unmarried support for standing and ambulation. Bilateral leg weakness Neurologic: Denies seizure-like symptoms. skin: No ulcer. No rash Endocrinology: Reports systems reviewed and no addt'l complaints, except as documented Hematologic/Lymphatic: Reports systems reviewed and no addt'l complaints, except as documented Rest 14 ROS are negative except as mentioned in HPI Vital Signs Vital Signs Vital Signs: 01/07/24 14:26 01/07/24 16:29 01/07/24 16:48 Temperature 96.3 F L Temperature Source Temporal Pulse Rate 82 73 Respiratory Rate 16 16 Respiratory Effort Short of Breath Respiratory Depth Respiratory Pattern Normal Blood Pressure 142/83 H 124/75 H Blood Pressure Mean 102 91 Pulse Ox 100 100 Oxygen Delivery Method Room Air Room Air 01/07/24 16:49 01/07/24 17:00 01/07/24 17:50 Temperature 98.1 F Temperature Source Pulse Rate 71 90 Respiratory Rate 20 H 20 H Respiratory Effort Short of Breath Respiratory Depth Normal Respiratory Pattern Normal Blood Pressure 144/86 H 127/79 H Blood Pressure Mean 105 95 Pulse Ox 100 100 Oxygen Delivery Method Room Air Room Air Weight Weight: 126 lb 15.78 oz Body Mass Index (BMI) 23.2 Physical Exam Narrative General: Alert, Oriented x3, Cooperative HEENT: Epistaxis stopped. It was a small, nonsignificant and 1 time. Atraumatic, PERRLA, EOMI, Normocephalic Oral: Oral mucosa dry. No Gingival or Mucosal Lesions/ Ulcerations Neck: Supple, No JVD, Negative Carotid Bruits Chest wall/Lungs: Air entry diminished in bilateral lung bases. No crepitation/rhonchi Cardiovascular: Regular rate, Regular Rhythm, Normal S1, Normal S2, No M/G/R Abdomen: Bowel Sounds Present, Soft, Non Tender, Non-Distended : No dysuria. No renal angle tenderness. No suprapubic tenderness. Extremities: 2+ lower extremity, pitting, chronic edema, bluish discoloration of fingertips and toes, chronic, peripheral cyanosis Skin: No rashes, No breakdown. No skin tightening. Musculoskeletal: Muscle strength 4/5 at knees and hip joints of lower and upper extremity of major joints. No Tenderness to Palpation of Joints or Extremities Neurological: Cranial nerves II-XII grossly intact, DTR 2+/4. No acute focal neurological deficit. Psych/Mental Status: Flat affect Results Lab / Micro Data 01/07/24 15:31 01/07/24 18:15 Labs: Laboratory Results - last 24 hr 01/07/24 15:31: WBC 7.5, RBC 3.85 L, Hgb 11.3 L, Hct 35.7 L, MCV 92.7, MCH 29.4, MCHC 31.7 L, RDW Std Deviation 81.0 H, RDW Coeff of Shaniqua 25.4 H, Plt Count 121 L, Immature Gran % (Auto) 1.900 H, Neut % (Auto) 91.7 H, Lymph % (Auto) 4.2 L, [place] % (Auto) 1.9, Eos % (Auto) 0.0, Baso % (Auto) 0.3, Absolute Neuts (auto) 6.9, Absolute Lymphs (auto) 0.31 L, Nucleated RBC % 0.3, Differential Comment SCANNED, Anisocytosis 2+, Microcytosis 1+, Macrocytosis 1+, Sodium 125 L, Potassium 6.5 H*, Chloride 93 L, Carbon Dioxide 15.0 L, Anion Gap 17 H, BUN 123 H*, Creatinine 7.34 H, Est GFR (MDRD) Af Amer 7 L, Est GFR (MDRD) Non-Af 6 L, BUN/Creatinine Ratio 16.8, Glucose 146 H, Calcium 8.8, Total Bilirubin 1.00, AST 103 H, ALT 68 H, Alkaline Phosphatase 48, Total Protein 7.0, Albumin 2.8 L, Globulin 4.2, Albumin/Globulin Ratio 0.7 L 01/07/24 17:03: Urine Color Yellow, Urine Clarity Sl. Cloudy, Urine pH 5.0, Ur Specific [place] 1.020, Urine Protein 500 H, Urine Glucose (UA) Normal, Urine Ketones 5 H, Urine Occult Blood 250 H, Urine Nitrite Negative, Urine Bilirubin Negative, Urine Urobilinogen Normal, Ur Leukocyte Esterase Negative, Urine RBC 0-5 SEEN, Urine WBC 0 SEEN, Ur Squamous Epith Cells 0 SEEN, Urine Bacteria 0 SEEN, Urine Mucus 0 SEEN Imaging Radiology Impression Chest X-Ray 01/07/24 16:40 IMPRESSION: Left greater than right interstitial opacities unchanged Electronically Signed: Chuy Curtis MD at 17:46 EDT Reading Location ID and State: [facility] / [place] Tel , Service support , Assessment & Plan Assessment/Plan (1) RIN (acute kidney injury): (2) Acute hyperkalemia: (3) Hyponatremia: PLAN: Plan This is 73-year-old female came to ED for hematochezia and epistaxis but found to be in acute kidney failure with chronic muscle weakness 1. RIN with uremia, exact etiology unclear, possible prerenal: Patient is being admitted in PCU. BUNs/creatinine 125/7.34. Creatinine was 0.78 in October 2023. Supervisor [employer] consulted. No emergent or urgent indication of hemodialysis. IV fluid bicarb drip at 250 mill per hour for 1 L and then 150 mill per hour to continue for next 2 L. Patient was on furosemide 40 mill daily as needed, ibuprofen, and Bactrim DS; all other nephrotoxic medications. These are discontinued. Patient also on prednisone 50 mg daily since 01/01/2024. Patient is open for dialysis if needed 2. Acute hyperkalemia: Serum potassium 6.5. Bicarb 15, anion gap 17. VBG ordered. ABG not ordered because of high risk of bleeding as patient has a spontaneous epistaxis and rectal bleed. High anion gap metabolic acidosis from kidney failure. 3. Hypotonic hypovolemic hyponatremia: Patient clinically looks hypovolemic and dry. Sodium is 125. 4. One-time mild epistaxis and bright red rectal bleed/hematochezia possible due to uremia: Platelet count was 129,000 in September 2023. Today 121,000. Patient might have functional platelet dysfunction and thrombocytopenia from uremia. PPI ordered. 5. Rheumatological disease: Diagnosis of Sjogren syndrome possible scleroderma, progressive: Patient has microstomia, oropharyngeal dysphagia and constipation due to decreased bowel transit possible due to Sjogren's disease. She follows outpatient [place] consulting sales executive. 6. Generalized muscle weakness including lower extremities and upper extremities and possible internal smooth muscles of GI tract: From rheumatological disease. 7. Mitral valve regurgitation: Did not appreciate murmur on auscultation probably mild. Patient also has bilateral lower extremity swelling. 2D echo is ordered. DVT prophylaxis: High risk but pharmacological prophylaxis contraindicated due to uremia and epistaxis and hematochezia. Living will/advanced directive/end of life care: Patient does have living will or advanced directive. Her is power of loan review officer for health, present in the ED. After discussion of benefits/risks procedures involved with full code, DNR CC arrest and DNR CC, the patient and her are indecisive but needs more time. For now full code. Patient does want artificial life support including intubation, tube feed, ventilator and/chest compression, central venous catheter, vasopressor and DC shock if needed Total time spent in [id number] encounter in discussion of advanced directive 17 minutes. Laboratory Results 01/07/24 15:31: WBC 7.5, RBC 3.85 L, Hgb 11.3 L, Hct 35.7 L, MCV 92.7, MCH 29.4, MCHC 31.7 L, RDW Std Deviation 81.0 H, RDW Coeff of [place]iqu[place] 25.4 H, Plt Count 121 L, Immature Gran % (Auto) 1.900 H, Neut % (Auto) 91.7 H, Lymph % (Auto) 4.2 L, Grainger % (Auto) 1.9, Eos % (Auto) 0.0, Baso % (Auto) 0.3, Absolute Neuts (auto) 6.9, Absolute Lymphs (auto) 0.31 L, Nucleated RBC % 0.3, Differential Comment SCANNED, Anisocytosis 2+, Microcytosis 1+, Macrocytosis 1+, Sodium 125 L, Potassium 6.5 H*, Chloride 93 L, Carbon Dioxide 15.0 L, Anion Gap 17 H, BUN 123 H*, Creatinine 7.34 H, Est GFR (MDRD) Af Amer 7 L, Est GFR (MDRD) Non-Af 6 L, BUN/Creatinine Ratio 16.8, Glucose 146 H, Calcium 8.8, Total Bilirubin 1.00, AST 103 H, ALT 68 H, Alkaline Phosphatase 48, Total Protein 7.0, Albumin 2.8 L, Globulin 4.2, Albumin/Globulin Ratio 0.7 L 01/07/24 17:03: Urine Color Yellow, Urine Clarity Sl. Cloudy, Urine pH 5.0, Ur Specific [place] 1.020, Urine Protein 500 H, Urine Glucose (UA) Normal, Urine Ketones 5 H, Urine Occult Blood 250 H, Urine Nitrite Negative, Urine Bilirubin Negative, Urine Urobilinogen Normal, Ur Leukocyte Esterase Negative, Urine RBC 0-5 SEEN, Urine WBC 0 SEEN, Ur Squamous Epith Cells 0 SEEN, Urine Bacteria 0 SEEN, Urine Mucus 0 SEEN Charges/Coding Visit Charges Inpatient E&M: 78501 Init Hosp L3 Procedures Hospitalists Procedures: 17582 Advncd Care Plan 30 Min
[2024-01-07] MEDS: Sodium Polystyrene Sulfonate 15 GM/60 ML UDC 30 GM PO (18:32)
[2024-01-07] MEDS: Calcium Gluconate IV 2 GM in 0.9% Normal Saline (100mL Bag) 100 ML IV (18:32)
[2024-01-07 18:56] LABS: Anion Gap 17 (5-15); BUN 116 mg/dL (7-18); BUN/Creat Ratio 17.7 RATIO (10-20); Calcium,Total 7.2 mg/dL (8.5-10.1); Chloride 99 mmol/L (98-107); Creatinine, Serum 6.56 mg/dL (0.55-1.02); EST Glomerular Filtration Rate 7 mL/min (>60); Est Glom Filt Rate - Afr Amer 8 mL/min (>60); Estimated Creatinine Clearance 6.13 ml/min; Glucose 180 mg/dL (74-106); Magnesium 2.3 mg/dL (1.6-2.6); Phosphorus 5.6 mg/dL (2.5-4.9); Potassium 6.1 mmol/L (3.5-5.1); Sodium Level 126 mmol/L (136-145)
[2024-01-07] MEDS: Sodium Bicarbonate 150 MEQ in Dextrose 5%-Water (1000mL Bag) 1,000 ML 250 MEQ IV (19:28)
[2024-01-07 19:36] LABS: International Normalized Ratio 1.2; Prothrombin Time (Protime)PT. 15.6 SECONDS (11.7-14.9)
[2024-01-08] MEDS: Sodium Bicarbonate 150 MEQ in Dextrose 5%-Water (1000mL Bag) 1,000 ML IV ×2 (00:10→08:02)
[2024-01-08] MEDS: 0.9% Saline Lock 10 ML Syringe IV ×2 (01:35→21:04)
[2024-01-08] MEDS: Pantoprazole Sodium 40 MG in 0.9% Normal Saline (100mL MB+) 100 ML 330 MG IV ×2 (01:35→09:46)
[2024-01-08 02:08] VITALS: BP 102/66; PULSE 89; RESP 18; TEMP 36.4; O2SAT 96
[2024-01-08 05:15] LABS: Absolute Lymphocyte Count 0.54 X10^3/uL (0.83-4.51); Absolute Neutrophil Count 13.2 X10^3/uL (2.0-7.7); Basophil# 0.01 X10^3/uL; Basophil% 0.1 % (0-1); Hematocrit 27.5 % (37-47); Hemoglobin 9.1 g/dL (12.0-15.0); Lymphocyte # 0.54 X10^3/ul (0.83-4.51); Lymphocyte % 3.6 % (19-41); Mean Corp Hgb Conc 33.1 g/dL (32-36); Mean Corpuscular Hgb 30.2 pg (27.0-32.0); Mean Corpuscular Volume 91.4 fL (81-99); Mean Platelet Vol. 10.6 fl (6.2-12.0); Monocyte# 1.02 X10^3/uL; Monocyte% 6.8 % (0-10); NRBC Flagged by Analyzer 0.3 % (0-5); Neutrophil # 13.16 X10^3/uL (2.7-7.7); Neutrophil % 88.4 % (47-70); POSITIVE DIFFERENTIAL YES; POSITIVE MORPHOLOGY YES; Platelet Count 133 K/mm3 (150-450); RBC Distribution Width CV 24.9 % (11.6-14.6); RBC Distribution Width SD 75.9 fl (35.1-43.9); Red Blood Count 3.01 M/mm3 (4.2-5.4); White Blood Count 14.9 K/mm3 (4.4-11.0)
[2024-01-08 05:39] VITALS: BMI 26.5
[2024-01-08 05:46] LABS: Anion Gap 16 (5-15); BUN 117 mg/dL (7-18); BUN/Creat Ratio 16.5 RATIO (10-20); Calcium,Total 7.9 mg/dL (8.5-10.1); Chloride 99 mmol/L (98-107); Creatinine, Serum 7.08 mg/dL (0.55-1.02); EST Glomerular Filtration Rate 6 mL/min (>60); Est Glom Filt Rate - Afr Amer 7 mL/min (>60); Glucose 168 mg/dL (74-106); Potassium 5.1 mmol/L (3.5-5.1); Sodium Level 138 mmol/L (136-145); Thyroid Stim Hormone (TSH) 6.26 uIU/mL (0.358-3.74)
[2024-01-08 05:48] LABS: Differential Indicated SCAN CRITERIA MET
--- NOTE | 2024-01-08 06:49 | PCM.HOSP.N ---
Hospitalist Note Patient with complaint of atraumatic back discomfort unfortunately this point n.p.o. secondary to swallow concerns with pending ST evaluation. Will order lidocaine patch, K-pad and a one-time dose of low-dose fentanyl given blood pressure on the lower normal side.
[2024-01-08 07:23] VITALS: O2SAT 95
[2024-01-08] MEDS: Lidocaine 5% Patch 1 PATCH TOPICAL (07:26)
[2024-01-08 07:28] LABS: Anisocytosis 2+
[2024-01-08 08:11] VITALS: BP 93/60; PULSE 90; RESP 20; TEMP 36.6; O2SAT 96
--- NOTE | 2024-01-08 08:58 | PCM.CONS.R ---
Assessment & Plan Assessment/Plan (1) RIN (acute kidney injury): PLAN: Plan Acute renal failure. Baseline creatinine is normal as recent as November 2023. Came in with a creatinine of more than 7. CT abdomen without any hydronephrosis Urine analysis with significant proteinuria and hematuria microscopic. Other comorbidities include newly diagnosed Sjogren's syndrome, moderate pulmonary hypertension. Swallowing difficulty, generalized weakness, following with gastroenterology, neuromuscular disorders, rheumatology based out of [place]. She was at [facility] recently. She was on Lasix for volume overload, ibuprofen for pain, Bactrim for antibiotic prophylaxis. It appears she has some a significant form of Sjogren's syndrome, possibly mixed connective tissue disorder. 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 Given active urine, glomerulonephritis is possible. I will send a urine protein creatinine ratio, ANCA antibodies. For now continue low-dose IV fluids. Acidosis Hyperkalemia Overnight on bicarbonate drip. Bicarbonate values have improved. Potassium has improved. Changed to normal saline for today. No acute indications for dialysis today. Most likely she will need a kidney biopsy. HPI Consult Data Date of Consult: 01/08/24 HPI Narrative Reason for Consultation: RIN HPI Narrative: BUCKY GOMEZ, is a 73 F who presents To the hospital with shortness of breath, generalized weakness, decreased urine output. Nephrology on consultation in view of acute renal failure. She has been having multiple issues since August of this year. Started with shortness of breath which has been progressively getting worse, muscle pains, generalized weakness, poor appetite. Extensive workup. So far workup showed Echocardiogram with moderate pulmonary hypertension 65 mm, ejection fraction of 55%, grade 1 diastolic dysfunction Serologies, RADHA positive, subtypes SSA and SSB strongly positive, anti-BEVELLER OPERATOR borderline positive. Negative antiscleroderma, antichromatin, anticentromere antibodies. She was diagnosed with Sjogren's syndrome. Other main issue is swallowing difficulty for which she is following up with gastroenterology. She had a muscle biopsy in [place] for evaluation of neuromuscular disorders. Most of her care including neurology, rheumatology are in [place]. She has noticed decreased urine output over the last few days. For fluid overload she is on Lasix 40 mg once a day. She was recently started on prednisone for Sjogren's syndrome. Bactrim for prophylaxis. She uses ibuprofen as needed. No [id number] medications otherwise. [facility] Medical History (Updated 01/08/24 @ 09:[address] Raulito Esposito MD) RIN (acute kidney injury) Cataract Mitral valve regurgitation Home Medications ?Medication ?Instructions ?Recorded ?Last Taken ?Type prednisone 10 mg tablet 10 mg PO DAILY #45 TABLETS 10/09/23 01/07/24 Rx acetaminophen 650 mg 1,300 mg PO Q12H PRN pain 01/07/24 01/07/24 History tablet,extended release (8 Hour Pain Reliever) albuterol sulfate 90 mcg/actuation 2 puff inhalation Q4H PRN 01/07/24 01/07/24 History aerosol inhaler shortness of breath or wheezing cholecalciferol (vitamin D3) 50 50 mcg PO DAILY 01/07/24 01/06/24 History mcg (2,000 unit) capsule (D3-2000) furosemide 40 mg tablet 40 mg PO DAILY PRN edema 01/07/24 01/07/24 History ibuprofen 200 mg tablet 400 mg PO Q6H PRN pain 01/07/24 Unknown History magnesium oxide 400 mg PO DAILY 01/07/24 01/06/24 History peg 400-propylene glycol 0.4 %-0.3 1 drp EACH EYE TID PRN dry eye(s) 01/07/24 01/07/24 History % eye drops (Systane (propylene glycol)) sulfamethoxazole 800 1 tab PO MOWEFR 01/07/24 01/06/24 History mg-trimethoprim 160 mg tablet Allergy/AdvReac Type Severity Reaction Status Date / Time No Known Allergies Allergy Verified 01/07/24 14:26 Social History Smoking Status: Never smoker ROS ROS Narrative negative except above Physical Exam Narrative Alert awake oriented x 3 no obvious distress no pallor no icterus no JVD s1s2 no murmurs lungs clear abdomen soft no organomegaly no edema no cyanosis Lab / Micro Data 01/08/24 04:13 01/08/24 04:13 Labs: Laboratory Results - last 24 hr 01/07/24 15:31: WBC 7.5, RBC 3.85 L, Hgb 11.3 L, Hct 35.7 L, MCV 92.7, MCH 29.4, MCHC 31.7 L, RDW Std Deviation 81.0 H, RDW Coeff of Shaniqua 25.4 H, Plt Count 121 L, Immature Gran % (Auto) 1.900 H, Neut % (Auto) 91.7 H, Lymph % (Auto) 4.2 L, [place] % (Auto) 1.9, Eos % (Auto) 0.0, Baso % (Auto) 0.3, Absolute Neuts (auto) 6.9, Absolute Lymphs (auto) 0.31 L, Nucleated RBC % 0.3, Differential Comment SCANNED, Anisocytosis 2+, Microcytosis 1+, Macrocytosis 1+, Sodium 125 L, Potassium 6.5 H*, Chloride 93 L, Carbon Dioxide 15.0 L, Anion Gap 17 H, BUN 123 H*, Creatinine 7.34 H, Est GFR (MDRD) Af Amer 7 L, Est GFR (MDRD) Non-Af 6 L, BUN/Creatinine Ratio 16.8, Glucose 146 H, Calcium 8.8, Total Bilirubin 1.00, AST 103 H, ALT 68 H, Alkaline Phosphatase 48, Total Protein 7.0, Albumin 2.8 L, Globulin 4.2, Albumin/Globulin Ratio 0.7 L 01/07/24 17:03: Urine Color Yellow, Urine Clarity Sl. Cloudy, Urine pH 5.0, Ur Specific [place] 1.020, Urine Protein 500 H, Urine Glucose (UA) Normal, Urine Ketones 5 H, Urine Occult Blood 250 H, Urine Nitrite Negative, Urine Bilirubin Negative, Urine Urobilinogen Normal, Ur Leukocyte Esterase Negative, Urine RBC 0-5 SEEN, Urine WBC 0 SEEN, Ur Squamous Epith Cells 0 SEEN, Urine Bacteria 0 SEEN, Urine Mucus 0 SEEN 01/07/24 18:15: Sodium 126 L, Potassium 6.1 H*, Chloride 99, Carbon Dioxide 10.0 L, Anion Gap 17 H, BUN 116 H*, Creatinine 6.56 H, Estim Creat Clear Calc 6.13, Est GFR (MDRD) Af Amer 8 L, Est GFR (MDRD) Non-Af 7 L, BUN/Creatinine Ratio 17.7, Glucose 180 H, Calcium 7.2 L, Phosphorus 5.6 H, Magnesium 2.3 01/07/24 19:20: PT 15.6 H, INR 1.2 01/08/24 04:13: WBC 14.9 H, RBC 3.01 L, Hgb 9.1 L, Hct 27.5 L, MCV 91.4, MCH 30.2, MCHC 33.1, RDW Std Deviation 75.9 H, RDW Coeff of Shaniqua 24.9 H, Plt Count 133 L, MPV 10.6, Immature Gran % (Auto) 1.100 H, Neut % (Auto) 88.4 H, Lymph % (Auto) 3.6 L, [place] % (Auto) 6.8, Eos % (Auto) 0.0, Baso % (Auto) 0.1, Absolute Neuts (auto) 13.2 H, Absolute Lymphs (auto) 0.54 L, Nucleated RBC % 0.3, Anisocytosis 2+, Sodium 138, Potassium 5.1, Chloride 99, Carbon Dioxide 23.0, Anion Gap 16 H, BUN 117 H*, Creatinine 7.08 H, Estim Creat Clear Calc 6.40, Est GFR (MDRD) Af Amer 7 L, Est GFR (MDRD) Non-Af 6 L, BUN/Creatinine Ratio 16.5, Glucose 168 H, Calcium 7.9 L, TSH 6.26 H Imaging Radiology Impression Chest X-Ray 01/07/24 16:40 IMPRESSION: Left greater than right interstitial opacities unchanged Electronically Signed: Chuy Curtis MD at 17:46 EDT Reading Location ID and State: [address] [place] [address] Tel , Service support , Abdomen/Pelvis CT 01/07/24 17:56 IMPRESSION: Small bilateral pleural effusions and bibasilar congestion. Ileus. Electronically Signed: Chuy Curtis MD at 19:01 EDT Reading Location ID and State: [facility] / [place] Tel , Service support ,
[2024-01-08] MEDS: 0.9% Normal Saline (1000mL) 1,000 ML 75 ML IV (09:17)
[2024-01-08 09:40] LABS: Vitamin B12 462 pg/mL (211-911)
--- NOTE | 2024-01-08 09:40 | CASEMGMT ---
RN CM Face to Face with patient for initial transition planning/care coordination assessment. RN CM introduced self and role at [facility]. Patient lying in bed, alert and oriented, at bedside. Patient willing to participate in assessment and is able to answer all questions appropriately. Care providers, pharmacy, and demographics verified. PCP: Marcelo Specialists: RA Blake Babb; Vidhya, neuro muscular, [place] [facility]erred [facility]acy: [facility] Insurance: [facility] Prescription Benefit: yes Living Will/HPOA: yes, Chele Stafford LNOK: Living Arrangements: Patient lives with in a 2 story home with bed and bath on first floor, 5-6 steps and railing to enter the home. Patient was independent with toileting and dressing, assists with bathing, was needing more assistance at home. Transportation: DME/HHC: Patient has shower chair, raised toilet, cane, grab bars, walker, and wheelchair at home. No previous HHC or SNF Patient wishes to discharge home and is interested in HHC, CM to provide list. Patient states she has no further needs or concerns at this time. CM to follow for discharge planning needs that may arise. Disposition Plan: Patient to discharge home with HHC, family support, and follow-up plans in place. Tiffanie LUU, RN, CM
[2024-01-08 09:55] LABS: Ferritin 4322 ng/mL (8-252); Iron 49 ug/dL (50-170); Iron Binding Capacity,Total 162 ug/dL (250-450); PERCENT IRON SATURATION 30.2 % (15.0-55.0)
--- NOTE | 2024-01-08 10:02 | CASEMGMT ---
Discharge Planning A list of?HH providers including quality and resource use data and consistent with the patient's preferred geographic region, medical needs, and insurance network was created in [employer] Guide.? This list was provided to the RN SUDHA. Dorcas Lyle, Discharge Planning Asst.
--- NOTE | 2024-01-08 10:28 | CASEMGMT ---
WILBUR CM in to provide HHC list to patient and . Patient and to review list and provide preferences. CM will continue to follow this patient and plan for a safe discharge.
--- NOTE | 2024-01-08 12:30 | PN.HOSP_ITS ---
Reason for Visit Reason for Visit: Diagnoses Hypo-osmolality and hyponatremia (01/07/24) Hyperkalemia (01/07/24) Acute kidney failure, unspecified (01/07/24) Subjective Subjective Saw patient at bedside this morning. Patient was sitting up fairly comfortably in bed, conversing normally, in no acute distress. She was somewhat anxious appearing at baseline. was also present at bedside. Patient's primary concern that she discuss today was her ongoing shortness of breath exertion and chest pain with breathing. She stated this been going on for the last several months and had not seem to get any better. She has been following with a farmhand and was on prednisone at home but did not seem to have much improvement. She was not drinking or eating very well at home for the past few weeks. She has been also noted that she was having worsening difficulty with standing and with ambulation given her worsening generalized weakness. She continues to feel weak today, had not worked with physical therapy yet when I saw her. She denied any other acute pain or discomfort this morning. No other new concerns. Objective Data Objective Data Vital Signs: Vital Signs Temp Pulse Resp BP Pulse Ox O2 Del Method 97.9 F 90 20 H 93/60 96 Room Air 01/08/24 08:11 01/08/24 08:11 01/08/24 08:11 01/08/24 08:11 01/08/24 08:11 01/08/24 08:18 Oxygen Delivery Method Room Air Weight: 65.9 kg Body Mass Index (BMI) 26.5 Intake & Output: Intake and Output for Last 24 Hours 01/06/24 01/07/24 01/08/24 23:59 23:59 23:59 Intake Total 1370 / 1370 2707.5 / 2707.5 Balance 1370 / 1370 2707.5 / 2707.5 Lab / Micro Data 01/08/24 04:13 01/08/24 04:13 Labs: Laboratory Results - last 24 hr 01/07/24 15:31: WBC 7.5, RBC 3.85 L, Hgb 11.3 L, Hct 35.7 L, MCV 92.7, MCH 29.4, MCHC 31.7 L, RDW Std Deviation 81.0 H, RDW Coeff of Shaniqua 25.4 H, Plt Count 121 L, Immature Gran % (Auto) 1.900 H, Neut % (Auto) 91.7 H, Lymph % (Auto) 4.2 L, [place] % (Auto) 1.9, Eos % (Auto) 0.0, Baso % (Auto) 0.3, Absolute Neuts (auto) 6.9, A bsolute Lymphs (auto) 0.31 L, Nucleated RBC % 0.3, Differential Comment SCANNED, Anisocytosis 2+, Microcytosis 1+, Macrocytosis 1+, Sodium 125 L, Potassium 6.5 H*, Chloride 93 L, Carbon Dioxide 15.0 L, Anion Gap 17 H, BUN 123 H*, Creatinine 7.34 H, Est GFR (MDRD) Af Amer 7 L, Est GFR (MDRD) Non-Af 6 L, BUN/Creatinine Ratio 16.8, Glucose 146 H, Calcium 8.8, Total Bilirubin 1.00, AST 103 H, ALT 68 H, Alkaline Phosphatase 48, Total Protein 7.0, Albumin 2.8 L, Globulin 4.2, A lbumin/Globulin Ratio 0.7 L 01/07/24 17:03: Urine Color Yellow, Urine Clarity Sl. Cloudy, Urine pH 5.0, Ur Specific [place] 1.020, Urine Protein 500 H, Urine Glucose (UA) Normal, Urine Ketones 5 H, Urine Occult Blood 250 H, Urine Nitrite Negative, Urine Bilirubin Negative, Urine Urobilinogen Normal, Ur Leukocyte Esterase Negative, Urine RBC 0-5 SEEN, Urine WBC 0 SEEN, Ur Squamous Epith Cells 0 SEEN, Urine Bacteria 0 SEEN, Urine Mucus 0 SEEN 01/07/24 18:15: Sodium 126 L, Potassium 6.1 H*, Chloride 99, Carbon Dioxide 10.0 L, Anion Gap 17 H, BUN 116 H*, Creatinine 6.56 H, Estim Creat Clear Calc 6.13, E st GFR (MDRD) Af Amer 8 L, Est GFR (MDRD) Non-Af 7 L, BUN/Creatinine Ratio 17.7, Glucose 180 H, Calcium 7.2 L, Phosphorus 5.6 H, Magnesium 2.3 01/07/24 19:20: PT 15.6 H, INR 1.2 01/08/24 04:13: WBC 14.9 H, RBC 3.01 L, Hgb 9.1 L, Hct 27.5 L, MCV 91.4, MCH 30.2, MCHC 33.1, RDW Std Deviation 75.9 H, RDW Coeff of [place] 24.9 H, Plt Count 133 L, MPV 10.6, Immature Gran % (Auto) 1.100 H, Neut % (Auto) 88.4 H, Lymph % (Auto) 3.6 L, [place] % (Auto) 6.8, Eos % (Auto) 0.0, Baso % (Auto) 0.1, Absolute Neuts (auto) 13.2 H, Absolute Lymphs (auto) 0.54 L, Nucleated RBC % 0.3, Anisocytosis 2+, Sodium 138, Potassium 5.1, Chloride 99, Carbon Dioxide 23.0, A nion Gap 16 H, BUN 117 H*, Creatinine 7.08 H, Estim Creat Clear Calc 6.40, Est GFR (MDRD) Af Amer 7 L, Est GFR (MDRD) Non-Af 6 L, BUN/Creatinine Ratio 16.5, G lucose 168 H, Calcium 7.9 L, Iron 49 L, TIBC 162 L, Iron Saturation 30.2, F erritin 4322 H, Vitamin B12 462, Folate 10.30, TSH 6.26 H Radiography Diagnostic Testing: Radiology Impression Chest X-Ray 01/07/24 16:40 IMPRESSION: Left greater than right interstitial opacities unchanged Electronically Signed: Chuy Curtis MD at 17:46 EDT Reading Location ID and State: [address] [place] [address] Tel , Service support , Abdomen/Pelvis CT 01/07/24 17:56 IMPRESSION: Small bilateral pleural effusions and bibasilar congestion. Ileus. Electronically Signed: Chuy Curtis MD at 19:01 EDT Reading Location ID and State: [facility] / [place] Tel , Service support , Physical Exam Const alert, oriented x3, no apparent distress and average body habitus Constitutional Narrative: Elderly female, somewhat anxious appearing, otherwise sitting up in bed, conversing normally, in no acute distress. General Appearance: cooperative and comfortable HEENT normocephalic, head/scalp atraumatic, hearing grossly normal bilaterally and nasal mucous membranes and turbinates normal Eyes PERRL, EOMs intact bilaterally and conjunctivae normal Neck full ROM Chest inspection of chest normal Resp normal respiratory effort and no use of accessory muscles Resp Narrative: Breathing comfortably on room air at rest. Mild to moderately decreased breath sounds bilaterally throughout with mild crackles noted, no wheezing noted. Cardio regular rate, regular rhythm, no murmurs and peripheral pulses 2+ throughout GI normal to inspection, nondistended, normoactive bowel sounds, soft to palpation, non-tender and non-distended Back/Spine normal ROM Extremity normal to inspection, full ROM and no pedal edema Skin no rashes or lesions noted Neuro moves all extremities and no focal motor deficits Speech: speech normal Psych mental status grossly normal Mood & Affect: anxious Assessment & Plan Assessment/Plan (1) Generalized weakness: (2) Acute renal failure: (3) Acute hyperkalemia: (4) Anemia: PLAN: Plan Patient is a 73-year-old female who presented [facility] ED on 01/07/2024 with progressive shortness of breath and weakness. 1. Acute renal failure ? Nephrology following. Creatinine 7.34, BUN 123 on admit. Baseline creatinine around 0.8, was at baseline as recently as November. CT abdomen pelvis without any other process. UA with significant proteinuria and microscopic materia. Highest suspicion per nephrology is for glomerulonephritis given UA findings and active rheumatologic disease. Urine protein creatinine ratio and ANCA antibodies ordered. On low-dose IV fluids for now. If kidney function does not improve, patient will likely need renal biopsy in the next few days for further evaluation. Monitor daily BMP and urine output. No acute need for hemodialysis but potential need for dialysis in the near future has been discussed with the patient and she is amenable to this. 2. Acute metabolic acidosis with hyperkalemia, improving ? Presumed secondary to acute renal failure as noted above. Potassium 6.1 on admit, treated medically with improvement. Acidosis remaining stable for now. Treatment per nephrology recs as noted above. 3. Acute on chronic anemia; one-time episodes of mild epistaxis and hematochezia prior to admission ? Hemoglobin 11.3 on admit, decreased to 9.1 on hospital day 2. Patient did note having an episode of epistaxis and mild hematochezia on day of admission; suspect that this could be due to significant uremia. Iron studies show very high ferritin of 4322, consistent with anemia of chronic disease. Recent B12 and folate were normal. Monitor CBC daily for now. 4. Hyponatremia, resolved ? Sodium 125 on admit, increased to 138 on hospital day 2. Baseline sodium is within normal range. Suspect hyponatremia was due to recent poor p.o. intake, resolved with IV fluids. 5. 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 Patient follows with rheumatology in [place]. Had PFTs on 12/14/2023 that showed moderate restrictive ventilatory impairment with disproportionate reduction in diffusion capacity. Was being treated for autoimmune disease of unclear etiology (possible Sjogren's versus mixed connective tissue disease) with daily prednisone but did not seem to have much symptomatic improvement. Holding on steroids for now given possible need for renal biopsy if kidney function does not improve. 6. Acute debility ? PT/OT/case management following. Patient lives at home with her but has had worsening generalized weakness in setting of her significant medical issues as noted above. Likely home with home health care versus SNF on discharge. DVT prophylaxis: Heparin subcu CODE STATUS: Full code, verified Expected disposition: TBD Total clinical time spent by myself addressing the patient's medical issues, reviewing all the data, and collaborating with patient's care team: 50 minutes. Charges/Coding Visit Charges Inpatient E&M: 73312 Subs Hosp L3
--- NOTE | 2024-01-08 12:30 | ST.MBS ---
Modified Barium Swallow Patient Information Study Date: 01/08/24 Study Time: 13:30 Direct Billable Minutes: 135 Total Minutes procedure & reportin Diagnosis: Chronic dyspnea R06.09; Generalized weakness R53.1 Referring Physician: Leif Kidd Reason for Referral: Objectively assess swallow function, assess risk for aspiration, and determine recommendations for least restrictive diet textures and compensatory strategies to improve safety of swallow. Medical History: Pt has PMH including cataract and mitral valve regurgitation. She came to ED 01/07/24 with nose bleeding and bright red blood in stool. The past 4 to 6 months, she is having generalized weakness, difficulty in ambulation, could not lift small things, and dyspnea on exertion. She was diagnosed with Sjogren syndrome and follows enrollment representative in [place]. Of note, she also has progressively had decreased ability to open her mouth, as well as increased difficulty in swallowing. She feels as if food gets stuck in her mouth or chest and she needs more water to push it down. In the ED, she was found to have high BUN, creatinine, hyperkalemia and hyponatremia. She was very weak with dyspnea on minimal exertion, needing assistance for standing and walking. Pt admitted for management of RIN, hyponatremia, hyperkalemia, and dyspnea. She was referred for BSE, but CONSTRUCTION WORKER, Christina, recommended MBSS prior to BSE. Pt has been consuming a mostly liquid, puree, and ground textures at home. She reports coughing if she eats or drinks too quickly. She fatigues at meals. Pasta has been very effortful to eat. She has lost 17lbs in the past 6 months. Prior to mid-August of 2023, she was not having swallowing difficulty. Recently, she has undergone work-ups with a enrollment representative, dehairing machine tender, and neuromuscular specialist (Dr. Kee, [facility]). 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 She is awaiting results from pulmonology and neuromuscular work-ups. She is planned for upper GI at [facility] in [place] on 02/15/24. Chest X-ray 12/18/23 IMPRESSION: Findings suggestive of chronic scarring worse at the lung bases and possible left basilar atelectasis and/or early infiltrate. Chest X-ray 01/07/24 IMPRESSION: Left greater than right interstitial opacities unchanged. Current Diet Ordered: NPO prior to ST consult Dentition: Edentulous (Dentures placed for first couple of trials, but were then removed as they are ill-fitting) Mental Status: WNL Respiratory Status: Oxygenating on Room Air Penetration-Aspiration Scale Penetration-Aspiration Scale: OBJECTIVE ASSESSMENT OF SWALLOW FUNCTION (QUANTITATIVE ? PER TRIAL): PENETRATION / ASPIRATION SCALE (CHING): 1 = does not enter airway 2 = enters airway/above vocal folds/ejected 3 = enters airway/above vocal folds/not ejected 4 = enters airway/contacts vocal folds/ejected 5 = enters airway/contacts vocal folds/not ejected 6 = enters airway/below vocal folds/ejected 7 = enters airway/below vocal folds/not ejected despite effort 8 = enters airway/below vocal folds/no effort VIDEOFLOROSCOPIC SCALE SCORE (CHING): Grade I = aspiration of material that has penetrated into the laryngeal vestibule, intact cough reflex Grade II = aspiration < 10 % of the bolus, intact cough reflex Grade III = aspiration of < 10 % of the bolus, reduced cough reflex or aspiration of > 10 % of the bolus, intact cough reflex Grade IV = aspiration of > 10 % of the bolus, reduced cough reflex Penetration-Aspiration Scale Score Thin Liquid via teaspoon: Result: 7= enters airways/below vocal folds/not ejected despite effort Thin Liquid via teaspoon Effortful swallow: Result: 5= enters airways/contacts vocal folds/not ejected Comment: Reflexive throat clear = somewhat effective. Cued cough and re-swallow = somewhat effective. Thin Liquid via small single sip: cup: Result: 7= enters airways/below vocal folds/not ejected despite effort [place] Thick Liquid via small single sip: cup: Result: 3= enters airways/above vocal folds/not ejected Pudding via 1/2 teaspoon: Result: 3= enters airways/above vocal folds/not ejected Comment: Post prandial penetration of residues of previous trials to the vocal folds. Cued chin tuck on second swallow = somewhat effective. Esophageal screen - Retention in lower esophagus. Pudding via 1/2 teaspoon Trial 2: Result: 3= enters airways/above vocal folds/not ejected Comment: Chin tuck = minimal to no impact. Multiple swallows = somwhat effective. Oral Phase Labial Seal: Interlabial escape, no progression to anterior lip Tongue Control During Bolus Hold: Posterior escape of less than half of bolus Bolus Transport/Lingual Motion: Repetitive/disorganized tongue motion Oral Residue: Residue collection on oral structures Pharyngeal Phase Initiation of Pharyngeal Swallow: Bolus head in pyriforms Soft Palate Elevation: No bolus between soft palate and pharyngeal wall Laryngeal Elevation: Partial superior movement thyroid cart/partial apprx aryt-epig petiole Anterior Hyoid Excursion: Partial anterior movement Epiglottic Movement: Partial inversion (inconsistent) Laryngeal Vestibule Closure at Height of Swallow: Incomplete; narrow column of air/contrast in laryngeal vestibule Pharyngeal Stripping Wave: Present - diminished Pharyngoesophageal Segment Opening: Parital distension and partial duration; parital obstruction of flow Tongue Base Retraction: Wide column of contrast between tongue base & post. pharyngeal wall Pharyngeal Residue: Majority of contrast within or on pharyngeal structures Esophageal Phase Esophageal Clearance: Esophageal retention Treatment Strategies Effects of treatment strategies attemped:: Chin tuck = somewhat effective; however, inconsistent. CONSTRUCTION WORKER recommends neutral head position to avoid expending additional energy during the swallow. Multiple swallows = somewhat effective. Effortful swallow = minimal to no impact. Cough and re-swallow = somewhat effective. Diagnosis/Impression Diagnosis: Moderate-severe oropharyngeal dysphagia R13.12 Impression: The oral phase is primarily marked by... -Decreased bolus control with loss of <1/2 thin liquid bolus to the pharynx prior to swallow onset. -Disorganized tongue motion for A-P transport. -Did not assess mastication of regular cookie due to poor pharyngeal clearance of pudding and patient appearing fatigued during study. Of note, current home diet is finely ground and pureed foods. The pharyngeal phase is primarily marked by... -Decreased airway closure due to decreased laryngeal elevation, decreased anterior hyoid excursion, and inconsistent epiglottic inversion. -Decreased pharyngeal contraction due to poor tongue base retraction, decreased pharyngeal stripping wave, and decreased UES opening/duration. -Overt aspiration with thin liquids via tsp and cup. Aspiration of thin liquids via tsp occurred between the first and second swallow with residue spilling from the pyriforms. Post prandial aspiration of residues of mildly thick liquids. The esophageal phase is primarily marked by... -Mild retention of pudding in lower esophagus. CONSTRUCTION WORKER reviewed images of pudding trials w/ radiologist, Dr. Carrasquillo, due to observed tremor in pharynx. Per Dr. Carrasquillo, the patient has tremulous aryepiglottic folds likely secondary to underlying neuromuscular deficits. Recommendations Diet: Puree Textures and [place]-thick Liquids (Mildly-thick Liquids - IDDSI Level 2) Comment: Consider smaller, more frequent meals as opposed to 3 large meals due to fatiguing with oral intake. Compensatory Strategies: Small Bites, Small Sips, Slow Rate, Multiple Swallows, Alternate bites/solids and sips/liquids, Sitting upright and Remain sitting upright for 30 minutes after PO intake Supervision: Distant Supervision Recommend Repeat Modified Barium Swallow: TBD Need for Skilled Speech Therapy Services: Yes Comment: -Follow for ongoing assessment of diet tolerance and training in strategies to decrease risk for aspiration. -If good tolerance, please consider trials of minced and moist textures w/ CONSTRUCTION WORKER. Also, would consider the patient for [place] Free Water Protocol (FFWP) if stable respiratory status. -Pending results of neuromuscular work-up and once etiology of swallowing difficulty is determined, would consider the patient for oropharyngeal strengthening (Teresa, Effortful, [place], CTAR); however, in the meantime this CONSTRUCTION WORKER would recommend approaching swallowing with the goal of energy conservation since she appears to easily fatigue with oral intake. Recommended Referrals: GI Consult (CONSTRUCTION WORKER sent backline to Dr. Davila inquiring if he feels he could intervene with decreased UES opening/duration. Of note, the patient does have upper GI planned 02/15/24 at [facility] in [place].), ENT Consult (Outpatient, tremulous aryepiglottic folds) and Dietitian Consult (Stop Attacher already following) Education Completed: 1. Described result of evaluation., 2. Pt understands evaluation & agrees with goals and treatment plan. and 4. Family/caregivers understand evaluation & agree w/ goals & tx plan. Status Active ST Patient: Active Contact Information [facility] Speech Therapy:: Mary White M.A. [facility]-CONSTRUCTION WORKER? Speech-Language Pathologist?? [facility] [address] [place] [address]? [email or web address]?? [phone]
[2024-01-08 14:15] VITALS: BP 96/60; PULSE 82; RESP 18; TEMP 36.5; O2SAT 96
[2024-01-08 14:43] VITALS: BP 96/60; PULSE 80; RESP 20; TEMP 36.5; O2SAT 96
--- NOTE | 2024-01-08 18:59 | NURSING ---
Pt took dentures and medications home.
[2024-01-08 20:55] VITALS: BP 97/54; PULSE 83; RESP 18; TEMP 36.7; O2SAT 97
[2024-01-09] VITALS (12 sets, daily range): BP systolic 90–111; BP diastolic 62–79; PULSE 74–146; RESP 16–32; TEMP 36.4–36.6; O2SAT 94–98; BMI 26.5
[2024-01-09] MEDS: 0.9% Normal Saline (1000mL) 1,000 ML 75 ML IV ×2 (00:05→14:20)
[2024-01-09 06:19] LABS: Hematocrit 25.5 % (37-47); Hemoglobin 8.1 g/dL (12.0-15.0); Mean Corp Hgb Conc 31.8 g/dL (32-36); Mean Corpuscular Volume 94.4 fL (81-99); Mean Platelet Vol. 10.6 fl (6.2-12.0); POSITIVE MORPHOLOGY YES; Platelet Count 140 K/mm3 (150-450); RBC Distribution Width CV 26.1 % (11.6-14.6); RBC Distribution Width SD 83.9 fl (35.1-43.9); White Blood Count 13.8 K/mm3 (4.4-11.0)
[2024-01-09 06:28] LABS: Scan Indicated on CBC? Y/N YES- FLAGS NOTED
[2024-01-09 07:00] LABS: BUN 122 mg/dL (7-18); BUN/Creat Ratio 16.1 RATIO (10-20); Calcium,Total 7.6 mg/dL (8.5-10.1); Chloride 93 mmol/L (98-107); Creatinine, Serum 7.58 mg/dL (0.55-1.02); EST Glomerular Filtration Rate 6 mL/min (>60); Est Glom Filt Rate - Afr Amer 7 mL/min (>60); Estimated Creatinine Clearance 5.98 ml/min; Glucose 114 mg/dL (74-106); Phosphorus 7.6 mg/dL (2.5-4.9); Potassium 4.1 mmol/L (3.5-5.1); Sodium Level 129 mmol/L (136-145)
[2024-01-09] MEDS: Pantoprazole Sodium 40 MG in 0.9% Normal Saline (100mL MB+) 100 ML 330 MG IV (08:40)
--- NOTE | 2024-01-09 11:56 | PCM.PN.HOSP ---
Reason for Visit Reason for Visit: Diagnoses Anemia, unspecified (01/07/24) Hypo-osmolality and hyponatremia (01/07/24) Hyperkalemia (01/07/24) Acute kidney failure, unspecified (01/07/24) Weakness (01/07/24) Subjective Subjective Saw patient at bedside this morning, present. Patient appeared similar today to yesterday, was sitting up fairly comfortably in bedside chair, conversing normally, in no acute distress. She continues to feel fatigued but otherwise denies any acute pain or discomfort. She has been tolerating moist solid foods without significant issue, no episodes of choking or aspiration. No other new concerns today. Objective Data Objective Data Vital Signs: Vital Signs Temp Pulse Resp BP Pulse Ox O2 Del Method 97.6 F L 74 16 90/62 96 Room Air 01/09/24 10:30 01/09/24 10:30 01/09/24 10:30 01/09/24 10:30 01/09/24 10:30 01/09/24 10:30 Oxygen Delivery Method Room Air Weight: 65.9 kg Body Mass Index (BMI) 26.5 Intake & Output: Intake and Output for Last 24 Hours 01/07/24 01/08/24 01/09/24 23:59 23:59 23:59 Intake Total 1370 / 1370 3123.75 / 3123.75 793.75 / 793.75 Output Total Balance 1370 / 1370 3113.75 / 3113.75 793.75 / 793.75 Lab / Micro Data 01/09/24 05:58 01/09/24 05:58 Labs: Laboratory Results - last 24 hr 01/09/24 05:58: WBC 13.8 H, RBC 2.70 L, Hgb 8.1 L, Hct 25.5 L, MCV 94.4, MCH 30.0, MCHC 31.8 L, RDW Std Deviation 83.9 H, RDW Coeff of Shaniqua 26.1 H, Plt Count 140 L, MPV 10.6, Sodium 129 L, Potassium 4.1, Chloride 93 L, Carbon Dioxide 20.0 L, BUN 122 H*, Creatinine 7.58 H*, Estim Creat Clear Calc 5.98, Est GFR (MDRD) Af Amer 7 L, Est GFR (MDRD) Non-Af 6 L, BUN/Creatinine Ratio 16.1, Glucose 114 H, Calcium 7.6 L, Phosphorus 7.6 H, Albumin 2.0 L Physical Exam Const alert, oriented x3, no apparent distress and average body habitus Constitutional Narrative: Elderly female, somewhat anxious appearing, otherwise sitting up in bed, conversing normally, in no acute distress. Stable. General Appearance: cooperative and comfortable HEENT normocephalic, head/scalp atraumatic, hearing grossly normal bilaterally and nasal mucous membranes and turbinates normal Eyes PERRL, EOMs intact bilaterally and conjunctivae normal Neck full ROM Chest inspection of chest normal Resp normal respiratory effort and no use of accessory muscles Resp Narrative: Breathing comfortably on room air at rest. Mildly decreased breath sounds bilaterally throughout with mild crackles noted, no wheezing noted. Stable. Cardio regular rate, regular rhythm, no murmurs and peripheral pulses 2+ throughout GI normal to inspection, nondistended, normoactive bowel sounds, soft to palpation, non-tender and non-distended Back/Spine normal ROM Extremity normal to inspection, full ROM and no pedal edema Skin no rashes or lesions noted Neuro moves all extremities and no focal motor deficits Speech: speech normal Psych mental status grossly normal Mood & Affect: anxious Assessment & Plan Assessment/Plan (1) Generalized weakness: (2) Acute renal failure: (3) Acute hyperkalemia: (4) Anemia: PLAN: Plan Patient is a 73-year-old female who presented [facility] ED on 01/07/2024 with progressive shortness of breath and weakness. 1. Acute renal failure ? Nephrology following. Creatinine 7.34, BUN 123 on admit. Baseline creatinine around 0.8, was at baseline as recently as November. CT abdomen pelvis without any other process. UA with significant proteinuria and microscopic materia. Highest suspicion per nephrology is for glomerulonephritis given UA findings and active rheumatologic disease. Urine protein creatinine ratio and ANCA antibodies pending. On low-dose IV fluids for now. If kidney function does not improve, patient will likely need renal biopsy in the next few days for further evaluation. Monitor daily BMP and urine output. No acute need for hemodialysis but potential need for dialysis in the near future has been discussed with the patient and she is amenable to this. 2. Acute metabolic acidosis with hyperkalemia, improving ? Presumed secondary to acute renal failure as noted above. Potassium 6.1 on admit, treated medically with improvement. Acidosis remaining stable for now. Treatment per nephrology recs as noted above. 3. Acute on chronic anemia; one-time episodes of mild epistaxis and hematochezia prior to admission ? Hemoglobin 11.3 on admit, decreased to 9.1 on hospital day 2 and again down trended to 8.1 on 01/08. Patient did note having an episode of epistaxis and mild hematochezia on day of admission; suspect that this could be due to significant uremia. Iron studies show very high ferritin of 4322, consistent with anemia of chronic disease. Recent B12 and folate were normal. Monitor CBC daily for now. 4. Hyponatremia ? Sodium 125 on admit, apparently increased to 138 on hospital day 2 but back down to 129 on 01/08. Suspect 138 was an aberrant lab value. Baseline sodium is within normal range. Suspect hyponatremia is due to recent poor p.o. intake and kidney failure with acid-base issues as noted above. On low-dose normal saline for maintenance fluids as noted above, continue to monitor BMP daily. 5. 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 Patient follows with rheumatology in [place]. Had PFTs on 12/14/2023 that showed moderate restrictive ventilatory impairment with disproportionate reduction in diffusion capacity. Was being treated for autoimmune disease of unclear etiology (possible Sjogren's versus mixed connective tissue disease) with daily prednisone but did not seem to have much symptomatic improvement. Holding on steroids for now given possible need for renal biopsy if kidney function does not improve. 6. Acute debility ? PT/OT/case management following. Patient lives at home with her but has had worsening generalized weakness in setting of her significant medical issues as noted above. Likely home with home health care versus SNF on discharge. DVT prophylaxis: Heparin subcu CODE STATUS: Full code, verified Expected disposition: TBD Total clinical time spent by myself addressing the patient's medical issues, reviewing all the data, and collaborating with patient's care team: 35 minutes. Charges/Coding Visit Charges Inpatient E&M: 23204 Subs Hosp L2
--- NOTE | 2024-01-09 16:55 | PN.RENAL_ITS ---
Subjective Subjective Following for RIN. The patient reports dyspnea with exertion. However, there is no shortness of breath at rest. Appetite remains poor. She denies nausea, vomiting or chest pain. Objective Data Objective Data Vital Signs: Vital Signs Temp Pulse Resp BP Pulse Ox O2 Del Method 97.6 F L 76 18 93/67 98 Room Air 01/09/24 15:00 01/09/24 15:00 01/09/24 15:00 01/09/24 15:00 01/09/24 15:00 01/09/24 15:00 Oxygen Delivery Method Room Air Weight: 65.9 kg Body Mass Index (BMI) 26.5 Intake & Output: Intake and Output for Last 24 Hours 01/07/24 01/08/24 01/09/24 23:59 23:59 23:59 Intake Total 1370 / 1370 3123.75 / 3123.75 1913.75 / 1913.75 Output Total 0 / 0 Balance 1370 / 1370 3113.75 / 3113.75 1913.75 / 1913.75 Lab / Micro Data 01/09/24 05:58 01/09/24 05:58 Labs: Laboratory Results - last 24 hr 01/09/24 05:58: WBC 13.8 H, RBC 2.70 L, Hgb 8.1 L, Hct 25.5 L, MCV 94.4, MCH 30.0, MCHC 31.8 L, RDW Std Deviation 83.9 H, RDW Coeff of Shaniqua 26.1 H, Plt Count 140 L, MPV 10.6, Sodium 129 L, Potassium 4.1, Chloride 93 L, Carbon Dioxide 20.0 L, BUN 122 H*, Creatinine 7.58 H*, Estim Creat Clear Calc 5.98, Est GFR (MDRD) Af Amer 7 L, Est GFR (MDRD) Non-Af 6 L, BUN/Creatinine Ratio 16.1, Glucose 114 H , Calcium 7.6 L, Phosphorus 7.6 H, Albumin 2.0 L Physical Exam Narrative Alert awake oriented x 3 no obvious distress no pallor no icterus no JVD s1s2 no murmurs lungs clear abdomen soft no organomegaly no edema no cyanosis Assessment & Plan Assessment/Plan (1) RIN (acute kidney injury): (2) Hyponatremia: PLAN: Plan Impression/Plan: The patient is a with past history of 73-year-old female with past history of Sjogren's syndrome, pulmonary hypertension, and mitral valve regurgitation. She presented to the hospital 01/07/2024 with epistaxis and generalized weakness. During the evaluation in the ED, the patient was found to have RIN with serum creatinine of 7.08 mg/dL. Nephrology is following for RIN. Acute kidney injury. Baseline creatinine is normal as recent as November 2023 (creatinine was 0.78 mg/dL 11/18/2023). Serum creatinine was 7.34 mg/dL on presentation on 01/07/2024. CT abdomen without any hydronephrosis Urinalysis with significant proteinuria and hematuria microscopic. Other comorbidities include newly diagnosed Sjogren's syndrome, moderate pulmonary hypertension. Swallowing difficulty, generalized weakness, following with gastroenterology, neuromuscular disorders, rheumatology based out of [place]. She was at [facility] recently. She was on Lasix for volume overload, ibuprofen for pain, Bactrim for antibiotic prophylaxis prior to admission. It appears she has some a significant form of Sjogren's syndrome, possibly mixed connective tissue disorder. 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 Given active urine, glomerulonephritis or vasculitis is possible. We have sent urine protein creatinine ratio, ANCA antibodies. Despite volume expansion, serum creatinine has increased to 7.58 mg/dL today on 01/09/2024. However, there is no hyperkalemia or significant metabolic acidosis. Therefore, there is no urgent need for hemodialysis today. However, the patient and her family were told that if there is no significant improvement of renal function by 01/11/2024, she would benefit from starting hemodialysis. We will arrange for kidney biopsy on 01/11/2024 as well. Hyponatremia. Serum sodium is down to 129 mmol/L today. The patient has no worrisome symptoms of hyponatremia such as persistent nausea, headache or confusion. I suspect hyponatremia is due to oliguric RIN. Will continue to monitor serum sodium.
--- NOTE | 2024-01-09 19:41 | EKG12_ITS ---
Test Reason : CP Blood Pressure : / mmHG Vent. Rate : 078 BPM Atrial Rate : 078 BPM P-R Int : 104 ms QRS Dur : 076 ms QT Int : 370 ms P-R-T Axes : 048 032 022 degrees QTc Int : 421 ms Sinus rhythm with short [place] Low voltage QRS Borderline ECG When compared with ECG of 07-JAN-2024 16:34, MANUAL COMPARISON REQUIRED, DATA IS UNCONFIRMED Confirmed by JUSTINO LYNN, TAMMIE ([id number]), restaurant expeditor ERICK RAMIREZ ([id number]) on 01/13/2024 10:05:12 AM Referred By: Confirmed By:CARLOS BADILLO MD
--- NOTE | 2024-01-09 20:55 | EKG12_ITS ---
Test Reason : TACHYCARDIA Blood Pressure : / mmHG Vent. Rate : 144 BPM Atrial Rate : 000 BPM P-R Int : 000 ms QRS Dur : 076 ms QT Int : 274 ms P-R-T Axes : 000 067 -49 degrees QTc Int : 424 ms Critical Test Result: High HR AFIB WITH RVR Abnormal ECG When compared with ECG of 09-JAN-2024 19:44, MANUAL COMPARISON REQUIRED, DATA IS UNCONFIRMED Confirmed by JUSTINO LYNN, TAMMIE ([id number]), editor in chief ERICK RAMIREZ ([id number]) on 01/13/2024 10:04:39 AM Referred By: Confirmed By:CARLOS BADILLO MD
--- NOTE | 2024-01-09 21:09 | PCM.HOSP.N ---
Hospitalist Note Rhythm change, difficult to ascertain p waves, possibly SVT, rate 140s, will dose with cardizem 10 mg IV x 1 now given lower normal BP and re-assess.
[2024-01-09] MEDS: dilTIAZem 25 MG/5 ML Vial 10 MG IV BOLUS (21:23)
[2024-01-09] MEDS: 0.9% Saline Lock 10 ML Syringe IV (21:23)
[2024-01-09] MEDS: dilTIAZem 25 MG/5 ML Vial 10 MG IV (22:22)
--- NOTE | 2024-01-09 23:22 | EKG12_ITS ---
Test Reason : RHYTHM CHANGE Blood Pressure : / mmHG Vent. Rate : 074 BPM Atrial Rate : 074 BPM P-R Int : 120 ms QRS Dur : 076 ms QT Int : 366 ms P-R-T Axes : 048 046 025 degrees QTc Int : 406 ms Normal sinus rhythm Low voltage QRS Borderline ECG When compared with ECG of 09-JAN-2024 21:00, MANUAL COMPARISON REQUIRED, DATA IS UNCONFIRMED Confirmed by JUSTINO LYNN, TAMMIE ([id number]), assistant editor ERICK RAMIREZ ([id number]) on 01/13/2024 10:04:12 AM Referred By: Confirmed By:CARLOS BADILLO MD
[2024-01-10] VITALS (67 sets, daily range): BP systolic 70–116; BP diastolic 52–76; PULSE 64–147; RESP 14–31; TEMP 36.3–37.1; O2SAT 91–100; BMI 26.5
[2024-01-10 00:17] LABS: Magnesium 2.3 mg/dL (1.6-2.6)
[2024-01-10] MEDS: Amiodarone 150 MG in Dextrose 5%-Water (100mL Bag) 100 ML 600 MG IV BOLUS (00:32)
[2024-01-10] MEDS: Amiodarone 360 MG in Dextrose 5% Viaflo Bag 192.8 ML 16.7 MG CONT INF (00:41)
[2024-01-10] MEDS: 0.9% Normal Saline (500mL Bag) 500 ML 999 ML IV (02:19)
[2024-01-10] MEDS: 0.9% Normal Saline (1000mL) 1,000 ML 75 ML IV (03:01)
[2024-01-10] MEDS: 0.9% Normal Saline (250mL Bag) 250 ML 999 ML IV (03:02)
[2024-01-10] MEDS: Midodrine HCl 5 MG Tablet 10 MG PO (04:23)
[2024-01-10 05:59] LABS: Hematocrit 26.5 % (37-47); Hemoglobin 8.4 g/dL (12.0-15.0); Mean Corp Hgb Conc 31.7 g/dL (32-36); Mean Corpuscular Hgb 30.4 pg (27.0-32.0); Mean Platelet Vol. 9.9 fl (6.2-12.0); POSITIVE MORPHOLOGY YES; Platelet Count 148 K/mm3 (150-450); RBC Distribution Width CV 26.1 % (11.6-14.6); RBC Distribution Width SD 87.8 fl (35.1-43.9); Red Blood Count 2.76 M/mm3 (4.2-5.4); White Blood Count 12.7 K/mm3 (4.4-11.0)
[2024-01-10 06:16] LABS: Scan Indicated on CBC? Y/N YES- FLAGS NOTED
[2024-01-10] MEDS: 0.9% Normal Saline (1000mL) 1,000 ML 999 ML IV (06:40)
[2024-01-10 06:55] LABS: Albumin, Serum 1.8 g/dL (3.2-5.0); BUN 117 mg/dL (7-18); BUN/Creat Ratio 15.4 RATIO (10-20); Calcium,Total 6.8 mg/dL (8.5-10.1); Chloride 94 mmol/L (98-107); Creatinine, Serum 7.59 mg/dL (0.55-1.02); EST Glomerular Filtration Rate 6 mL/min (>60); Est Glom Filt Rate - Afr Amer 7 mL/min (>60); Estimated Creatinine Clearance 5.96 ml/min; Glucose 106 mg/dL (74-106); Phosphorus 8.7 mg/dL (2.5-4.9); Potassium 3.9 mmol/L (3.5-5.1); Sodium Level 127 mmol/L (136-145); Thyroid Stim Hormone (TSH) 7.29 uIU/mL (0.358-3.74)
[2024-01-10 07:21] LABS: T4 Free Direct 0.94 ng/dL (0.76-1.46)
[2024-01-10] MEDS: Pantoprazole Sodium 40 MG in 0.9% Normal Saline (100mL MB+) 100 ML 330 MG IV (09:36)
[2024-01-10] MEDS: Lidocaine 5% Patch 1 PATCH TOPICAL (09:39)
[2024-01-10] MEDS: 0.9% Saline Lock 10 ML Syringe IV ×3 (09:39→21:40)
--- NOTE | 2024-01-10 12:13 | PN.HOSP_ITS ---
Reason for Visit Reason for Visit: Diagnoses Anemia, unspecified (01/07/24) Hypo-osmolality and hyponatremia (01/07/24) Hyperkalemia (01/07/24) Acute kidney failure, unspecified (01/07/24) Weakness (01/07/24) Subjective Subjective Overnight, patient went into A-fib with RVR and her blood pressure dropped. She was given a bolus of IV Cardizem without improvement, and then given a bolus of IV amiodarone with conversion back to normal sinus rhythm. He was also given a liter of IV fluids. She was transferred up to the ICU for closer monitoring. I saw the patient at the bedside this morning, multiple family members present. Patient was sitting up comfortably in bed, conversing normally, in no acute distress. She was breathing comfortably on 2 L nasal cannula with good oxygen saturations. She appeared similar to previous days for me. Her heart rate was stable in sinus rhythm in the 60s during my encounter with her. She and family were primarily concerned about plans going forward. I noted to them that nephrology is having a renal biopsy scheduled for tomorrow, and based on labs tomorrow there is a good chance that she will need a catheter placed so that she can be started on hemodialysis. No other new concerns today. Objective Data Objective Data Vital Signs: Vital Signs Temp Pulse Resp BP Pulse Ox O2 Del Method O2 Flow Rate 97.6 F L 70 31 H 101/60 94 Nasal Cannula 2 01/10/24 09:00 01/10/24 11:00 01/10/24 11:00 01/10/24 11:00 01/10/24 11:20 01/10/24 11:00 01/10/24 11:00 Oxygen Flow Rate (L/min) 2 Oxygen Delivery Method Nasal Cannula Weight: 65.8 kg Body Mass Index (BMI) 26.5 Intake & Output: Intake and Output for Last 24 Hours 01/08/24 01/09/24 01/10/24 23:59 23:59 23:59 Intake Total 3123.75 / 3123.75 2846.40 / 2846.40 Output Total 0 / 0 0 / 0 Balance 3113.75 / 3113.75 2846.40 / 2846.40 Lab / Micro Data 01/10/24 05:47 01/10/24 05:47 Labs: Laboratory Results - last 24 hr 01/09/24 23:50: Magnesium 2.3 01/10/24 05:47: WBC 12.7 H, RBC 2.76 L, Hgb 8.4 L, Hct 26.5 L, MCV 96.0, MCH 30.4, MCHC 31.7 L, RDW Std Deviation 87.8 H, RDW Coeff of Shaniqua 26.1 H, Plt Count 148 L, MPV 9.9, Sodium 127 L, Potassium 3.9, Chloride 94 L, Carbon Dioxide 19.0 L, BUN 117 H*, Creatinine 7.59 H*, Estim Creat Clear Calc 5.96, Est GFR (MDRD) Af Amer 7 L, Est GFR (MDRD) Non-Af 6 L, BUN/Creatinine Ratio 15.4, Glucose 106, Calcium 6.8 L, Phosphorus 8.7 H, Albumin 1.8 L, TSH 7.29 H, Free T4 0.94 Physical Exam Const alert, oriented x3, no apparent distress and average body habitus Constitutional Narrative: Elderly female, somewhat anxious appearing, otherwise sitting up in bed, conversing normally, in no acute distress. Stable. General Appearance: cooperative and comfortable HEENT normocephalic, head/scalp atraumatic, hearing grossly normal bilaterally and nasal mucous membranes and turbinates normal Eyes PERRL, EOMs intact bilaterally and conjunctivae normal Neck full ROM Chest inspection of chest normal Resp normal respiratory effort and no use of accessory muscles Resp Narrative: Breathing comfortably on 2 L nasal cannula at rest with good oxygen saturations. Mildly decreased breath sounds bilaterally throughout with mild crackles noted, no wheezing noted. Stable. Cardio regular rate, regular rhythm, no murmurs and peripheral pulses 2+ throughout GI normal to inspection, nondistended, normoactive bowel sounds, soft to palpation, non-tender and non-distended Back/Spine normal ROM Extremity normal to inspection, full ROM and no pedal edema Skin no rashes or lesions noted Neuro moves all extremities and no focal motor deficits Speech: speech normal Psych mental status grossly normal Mood & Affect: anxious Assessment & Plan Assessment/Plan (1) Generalized weakness: (2) Acute renal failure: (3) Acute hyperkalemia: (4) Anemia: PLAN: Plan Patient is a 73-year-old female who presented [facility] ED on 01/07/2024 with progressive shortness of breath and weakness. 1. Acute renal failure ? Nephrology following. Creatinine 7.34, BUN 123 on admit. Baseline creatinine around 0.8, was at baseline as recently as November. CT abdomen pelvis without any other process. UA with significant proteinuria and microscopic materia. Highest suspicion per nephrology is for glomerulonephritis given UA findings and active rheumatologic disease. Urine protein creatinine ratio and ANCA antibodies pending. Has had no improvement in kidney function to this point. Planning for renal biopsy tomorrow and likely placement of HD catheter for initiation of HD per nephrology recommendations. Was given IV fluids overnight for A-fib with RVR as noted below, holding on further IV fluids for now. Continue to monitor daily BMP and urine output. 2. Acute metabolic acidosis with hyperkalemia, stable ? Presumed secondary to acute renal failure as noted above. Potassium 6.1 on admit, treated medically with improvement. Acidosis remaining stable for now. Treatment per nephrology recs as noted above. 3. Episode of Afib with RVR and hypotension ? Went into A-fib with RVR on the evening of 01/08 with resultant hypotension. Had no improvement with a dose of IV Cardizem but then converted back to sinus rhythm with a dose of IV amiodarone. She was also given a liter of IV fluid at that time but continues to have borderline blood pressures so was transferred up to the ICU. On 01/09, off any rate controlling agents and heart rate stable in normal sinus rhythm in the 60s with adequate blood pressures. Suspect trigger for A-fib was worsened kidney disease along with severe systemic inflammatory disease. Holding on cardiology consult for now but if she has recurrence of A- fib with RVR, could consider consult as needed. 4. Acute on chronic anemia; one-time episodes of mild epistaxis and hematochezia prior to admission ? Hemoglobin 11.3 on admit, decreased to 9.1 on hospital day 2 and again down trended to 8.1 on 01/08. Most recent hemoglobin 8.4 on 01/09, stable. Patient did note having an episode of epistaxis and mild hematochezia on day of admission; suspect that this could be due to significant uremia. Iron studies show very high ferritin of 4322, consistent with anemia of chronic disease. Recent B12 and folate were normal. Monitor CBC daily for now. 5. Hyponatremia, stable ? Sodium 125 on admit, apparently increased to 138 on hospital day 2 but back down to 129 on 01/08. Suspect 138 was an aberrant lab value. Baseline sodium is within normal range. Suspect hyponatremia is due to recent poor p.o. intake and kidney failure with acid-base issues as noted above. Most recent sodium 127 on 01/09, stable. Holding on further IV fluids as noted above. 6. 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 Patient follows with rheumatology in [place]. Had PFTs on 12/14/2023 that showed moderate restrictive ventilatory impairment with disproportionate reduction in diffusion capacity. Was being treated for autoimmune disease of unclear etiology (possible Sjogren's versus mixed connective tissue disease) with daily prednisone but did not seem to have much symptomatic improvement. Holding on steroids for now given plan for renal biopsy as noted above. 7. Acute debility ? PT/OT/case management following. Patient lives at home with her but has had worsening generalized weakness in setting of her significant medical issues as noted above. Likely home with home health care versus SNF on discharge. DVT prophylaxis: Heparin subcu CODE STATUS: Full code, verified Expected disposition: TBD Total clinical time spent by myself addressing the patient's medical issues, reviewing all the data, and collaborating with patient's care team: 35 minutes. Charges/Coding Visit Charges Inpatient E&M: 91049 Subs Hosp L2
--- NOTE | 2024-01-10 15:45 | PCM.PN.REN ---
Subjective Subjective Following for RIN. The patient was moved to ICU overnight because of atrial fibrillation with RVR. She remains anuric. The patient denies current chest pain, palpitation, or nausea. Patient was nauseated overnight but did not have any emesis. She denies diarrhea. Appetite remains poor. Objective Data Objective Data Vital Signs: Vital Signs Temp Pulse Resp BP Pulse Ox O2 Del Method O2 Flow Rate 97.6 F L 110 H 14 85/66 L 91 Nasal Cannula 2 01/10/24 12:00 01/10/24 14:00 01/10/24 14:00 01/10/24 14:00 01/10/24 14:00 01/10/24 14:00 01/10/24 14:00 Oxygen Flow Rate (L/min) 2 Oxygen Delivery Method Nasal Cannula Weight: 65.8 kg Body Mass Index (BMI) 26.5 Intake & Output: Intake and Output for Last 24 Hours 01/08/24 01/09/24 01/10/24 23:59 23:59 23:59 Intake Total 3123.75 / 3123.75 2846.40 / 2846.40 Output Total 0 / 0 0 / 0 Balance 3113.75 / 3113.75 2846.40 / 2846.40 Lab / Micro Data 01/10/24 05:47 01/10/24 05:47 Labs: Laboratory Results - last 24 hr 01/09/24 23:50: Magnesium 2.3 01/10/24 05:47: WBC 12.7 H, RBC 2.76 L, Hgb 8.4 L, Hct 26.5 L, MCV 96.0, MCH 30.4, MCHC 31.7 L, RDW Std Deviation 87.8 H, RDW Coeff of Shaniqua 26.1 H, Plt Count 148 L, MPV 9.9, Sodium 127 L, Potassium 3.9, Chloride 94 L, Carbon Dioxide 19.0 L, BUN 117 H*, Creatinine 7.59 H*, Estim Creat Clear Calc 5.96, Est GFR (MDRD) Af Amer 7 L, Est GFR (MDRD) Non-Af 6 L, BUN/Creatinine Ratio 15.4, Glucose 106, Calcium 6.8 L, Phosphorus 8.7 H, Albumin 1.8 L, TSH 7.29 H, Free T4 0.94 Physical Exam Narrative Alert awake oriented x 3 no obvious distress no pallor no icterus no JVD s1s2 no murmurs lungs clear abdomen soft no organomegaly no edema no cyanosis Assessment & Plan Assessment/Plan (1) RIN (acute kidney injury): (2) Hyponatremia: PLAN: Plan Impression/Plan: The patient is a with past history of 73-year-old female with past history of Sjogren's syndrome, pulmonary hypertension, and mitral valve regurgitation. She presented to the hospital 01/07/2024 with epistaxis and generalized weakness. During the evaluation in the ED, the patient was found to have RIN with serum creatinine of 7.08 mg/dL. Nephrology is following for RIN. Acute kidney injury. Baseline creatinine is normal as recent as November 2023 (creatinine was 0.78 mg/dL on 11/18/2023). Serum creatinine was 7.34 mg/dL on presentation on 01/07/2024. CT abdomen without any hydronephrosis Urinalysis with significant proteinuria and hematuria microscopic. Other comorbidities include newly diagnosed Sjogren's syndrome, moderate pulmonary hypertension. Swallowing difficulty, generalized weakness, following with gastroenterology, neuromuscular disorders, rheumatology based out of [place]. She was at [facility] recently. She was on Lasix for volume overload, ibuprofen for pain, Bactrim for antibiotic prophylaxis prior to admission. It appears she has some a significant form of Sjogren's syndrome, possibly mixed connective tissue disorder. 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 Given active urine, glomerulonephritis or vasculitis is possible. We have ordered urine protein creatinine ratio, ANCA antibodies. Despite volume expansion, serum creatinine has increased to 7.58 mg/dL on 01/09/2024. However, there is no hyperkalemia or significant metabolic acidosis. Serum creatinine has stabilized at 7.59 mg/dL today. Therefore, there is no urgent need for hemodialysis. However, given worsening serum sodium and continued anuria, patient would likely benefit from hemodialysis within the next 24 to 48 hours unless there is marked improvement of renal function. I have ordered kidney biopsy for 01/11/2024 as well. Hyponatremia. Serum sodium is down to 127 mmol/L today. The patient has no worrisome symptoms of hyponatremia such as persistent nausea, headache or confusion. There is no need for hypertonic saline. I suspect hyponatremia is due to oliguric RIN. Will continue to monitor serum sodium. Hyperphosphatemia. Phosphorus level has increased to 8.7 mg/dL with lower calcium at 6.8 mg/dL today. Hyperphosphatemia secondary to RIN. Will start patient on phosphorus binder today.
[2024-01-10 20:07] LABS: Urine Sodium 50 mmol/L (Not Establ.)
[2024-01-10 20:21] LABS: Protein, Urine (Random) 313.1 mg/dL (<11.9); Protein:Creat Ratio 6973 mg/g CRE (0-200)
[2024-01-11] VITALS (40 sets, daily range): BP systolic 83–143; BP diastolic 29–77; PULSE 54–148; RESP 21–40; TEMP 35.6–36.7; O2SAT 94–100; BMI 26.8; BMI 29.3; BMI 29.5
--- NOTE | 2024-01-11 | KI_PTH ---
PATIENT: BUCKY GOMEZ LOC: [facility] U#:[id number] AGE/SX: 73/F ROOM: [facility] RE01/07/[address]: Dr. Charity Ragland MD : [id number] BED: 1 DIS: 01/11/2024 SPEC #: [id number] RECD: 01/11/24 10:08 STATUS: FRANCISCO REQ #: [id number] COURTNEY: 01/11/24 00:[address]: Charity Ragland DEPT: SURGICAL PATHOLOGY RECD BY: Braydon Castro ENTERED: 01/11/24 10:31 SP TYPE: KIDNEY BX OTHR DR: DO Dr. Raulito Bill MD Dr. John E Schinner, MD Dr. Prakash Chand, MD Tissues: Kidney, NOS Procedures: Fluorescent Antibody (ACH) Fluorescent antibody (ACH) add'l Surgery Specimen Level IV HEADER OPERATION: CT guided kidney biopsy PRE-OP DIAGNOSIS: Acute kidney injury TISSUE SUBMITTED: 18 gauge x4 cores- sent to [facility] MICROSCOPIC DIAGNOSIS Per [facility]- Kidney, side/site not further specified, renal biopsy: Marked intimal mucoid edema and endothelial swelling of arcuate and interlobular arteries with associated luminal occlusion and fibrin thrombi of arteriolar branches and afferent arterioles with glomerular collapse and fibrin deposition. See comment. 01/15/2024 COMMENT Per [facility]- Associated renal cortical necrosis (tubules and glomeruli) with interstitial admixed acute inflammation is seen. Negative for interstitial fibrosis. Hypertensive glomerulosclerosis, mild to moderate. The findings are those of renal parenchyma with bloodless glomeruli and multifocal (majority) ischemic glomeruli with variable amounts of acute inflammation as well as variable amounts of fibrin deposits within afferent arterioles and within hilar regions of glomeruli and with early coagulative necrosis. The most striking changes are those of cortical and subcortical necrosis/ coagulative necrosis of tubules with surrounding acute inflammation within the interstitium (neutrophil/predominant). Of note, no neutrophils or inflammatory infiltrate is seen within tubules; rather, neutrophils are identified between tubules and between necrotic tubules. One glomerulus demonstrates abundant fibrin within peripheral capillary loops as well as vascular pole-type collapse with fibrin deposition. Vascular pole-type collapse is seen in numerous glomeruli in the biopsy specimen. Intermediate-sized vascular structures (arcuate and interlobular arterial branches) demonstrate near occlusive intimal myxoid change with recanalized lumina in smaller diameter vascular structures/branches. Although it is difficult to differentiate acute inflammation (inflammatory process) with secondary vascular involvement (congestion, fibrin, and occlusion) from primary vascular lesion (vascular occlusion, fibrin deposition, and myxoid vascular change in intermediate-sized vessels with recanalization of smaller branch vessels and with fibrin occlusion of other smaller branch vessels, afferent arterioles, and glomerular hilar vessels (in addition to some peripheral glomerular capillary vasculature) with associated ischemic./coagulative necrosis of tubules and glomeruli with admixed acute inflammation best fit with a primary and vascular lesion/vascular involvement as cause for the cortical necrosis and acute inflammation in this case/patient. As opposed to an acute inflammatory/infectious process giving rise to secondary vascular changes, the pattern best fits with primary vascular changes giving rise to secondary vascular renal parenchymal necrosis (coagulative necrosis of tubules and ischemic contraction and collapse and coagulative necrosis of glomeruli) with secondary acute inflammation. These vascular changes best fit with endothelial injury and may be seen in thrombotic microangiopathy (HUS/TTP, Drugs/medication effect). In these disorders, glomerular changes often predominate. In the current case, tubulointerstitial changes are predominate and glomerular changes appear lesser but admixed to vascular involvement/occlusion. These histological changes may also be seen in immune complex-mediated glomerulonephritis. No mesangial or endocapillary or epithelial proliferation is seen within glomeruli. Immunofluorescence is uniformly negative. Likewise, these changes may also be seen in/with malignant hypertension. In this disorder intermediate-sized of vascular structures would predominate and myxoid changes may also be seen within intima of involved vessels with thrombosis and fibrin occlusion of distal vessels (smaller caliber vessels). Correlation with clinical history and findings may be helpful. Endothelial injury and vascular myxoid changes and /with fibrin thrombi and areas of necrosis may also be seen in thrombotic microangiopathy due to scleroderma renal crisis (specifically) or with other mixed autoimmune disease/collagen vascular disorders. Changes demonstrate arterial and arterial changes (arcuate interlobular arteries most affected) consistent with endothelial injury demonstrating intimal mucoid edema, luminal occlusion, and fibrin thrombi with fibrinoid deposits. Pattern best fits with primary vascular injury/disease (endothelial injury) within arcuate and interlobular arteries with intimal mucoid edema and with subsequent/distal luminal occlusion and fibrin thrombi within afferent arterioles and glomerular caro and glomerular peripheral capillary loops with associated cortical necrosis/ ischemic cortical necrosis. A connective tissue disorder with endothelial injury is most favored. A scleroderma renal crisis, most specifically, is favored/cannot be ruled out; however, clinical and serologic correlation and follow up is essential. Malignant hypertension and thrombotic microangiopathy are lesser differential diagnoses (give the patient's clinical history), be require clinical correlation. Electron microscopic studies will be completed, at a later date, and included in a supplemental report. This case is seen in consultation with Dr. Ray Calixto who occurs with the above diagnosis. 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 MICROSCOPIC DESCRIPTION Slides are reviewed. GROSS DESCRIPTION The entire specimen is sent to [facility] for diagnosis. Mr 01/11/2024 Per [facility]- Received in transport medium labeled with the patient's name and kidney biopsy the specimen consists of 5 cylindrical pieces of christina to christina-white renal parenchyma that are 0.4 to 1.5cm in length and 0.1cm in thickness. First Front Ventilator portion is submitted for immunofluorescent microscopy. First Front Ventilator portion is submitted for electron microscopy. The remainder of the specimen is entirely submitted as A1. ADDENDUM ADDENDUM ADDENDUM ADDENDUM ADDENDUM ADDENDUM ADDENDUM ADDENDUM ADDENDUM ADDENDUM ADDENDUM ADDENDUM ADDENDUM ADDENDUM ADDENDUM ADDENDUM ADDENDUM ADDENDUM ADDENDUM ADDENDUM ADDENDUM 01/22/2024 12:19 ADDENDUM 01/22/2024 12:19 ADDENDUM 01/22/2024 12:19 ADDENDUM 01/22/2024 12:19 ADDENDUM 01/22/2024 12:19 Addendum is added to include the results of electron microscopy studies ( 01/21/24) ELECTRON MICROSCOPY: Toluidine blue-stained sections (thick/turner machine sections) reveal only renal tubular interstitium without discernible glomeruli for histologic evaluation. Portions of renal parenchyma demonstrate a large diameter vascular structure without abnormality as well as tubules and tubulointerstitium. One portion of the EM specimen demonstrates ischemic/coagulative necrosis of numerous tubular profiles in addition to interstitial inflammatory infiltrate (mixed-type). A small diameter vascular profile/cross-section demonstrates histologically identifiable fibrin while majority of surrounding tubules demonstrate coagulative necrosis in the region. No glomeruli are present in the evaluation. Ultrastructure examination reveals tubules with ischemic change including faded nuclear detail and interrupted nuclear (peripheral) membranes in addition to interstitial microvascular proliferation with admixed acute and chronic interstitial inflammation. These features are similar to those identified in light microscopic tissue sections. Of note, a beaded appearance of central contents under ultrastructural evaluation; consistent with fibrin. No glomeruli or portions of glomeruli are available for histologic evaluation. Addendum is added to include electron microscopic evaluation without change to the original final diagnoses.
[2024-01-11 03:46] LABS: Hematocrit 31.2 % (37-47); Hemoglobin 10.3 g/dL (12.0-15.0); Mean Corpuscular Hgb 31.2 pg (27.0-32.0); Mean Corpuscular Volume 94.5 fL (81-99); Mean Platelet Vol. 10.3 fl (6.2-12.0); POSITIVE MORPHOLOGY YES; Platelet Count 199 K/mm3 (150-450); RBC Distribution Width CV 25.5 % (11.6-14.6); RBC Distribution Width SD 85.9 fl (35.1-43.9); White Blood Count 13.1 K/mm3 (4.4-11.0)
[2024-01-11 04:25] LABS: Albumin, Serum 1.8 g/dL (3.2-5.0); BUN 123 mg/dL (7-18); BUN/Creat Ratio 14.8 RATIO (10-20); Calcium,Total 7.1 mg/dL (8.5-10.1); Chloride 95 mmol/L (98-107); EST Glomerular Filtration Rate 5 mL/min (>60); Est Glom Filt Rate - Afr Amer 6 mL/min (>60); Estimated Creatinine Clearance 5.45 ml/min; Glucose 94 mg/dL (74-106); Phosphorus 9.3 mg/dL (2.5-4.9); Potassium 4.5 mmol/L (3.5-5.1); Sodium Level 128 mmol/L (136-145)
[2024-01-11 04:33] LABS: Scan Indicated on CBC? Y/N YES- FLAGS NOTED
--- NOTE | 2024-01-11 07:26 | CT_ITS ---
PROCEDURE: CT GUIDED PERCUTANEOUS KIDNEY BIOPSY. DATE: January 11, 2024. INDICATION: Female, 73 years old. Elevated creatinine. PHYSICIAN: Hemant Carrasquillo M.D. MEDICATIONS: 1 mg of Versed and 50 mcg of fentanyl intravenously. Conscious sedation was performed. The patient Mallampati score is 3. Conscious sedation was started at 9:17 AM and terminated at 9:34 AM. The patient was independently monitored by the department nurse. ACCESS SITE: Lower pole of right kidney NEEDLE: 18-gauge core biopsy needle SPECIMEN: 4, 18-gauge cores EBL: None. COMPLICATIONS: None immediate. RADIATION DOSAGE (If Supplied By Facility): CTDIvol = ( 15 ) mGy, DLP = ( 275.55 ) mGycm. Individualized dose optimization techniques were utilized. The risks, benefits, and alternatives to the procedure and sedation were explained to the patient. The specific risk of hemorrhage requiring further treatment or intervention was detailed and accepted. Written informed consent was obtained. The patient was placed on the CT table in the prone position. Multiple axial images were obtained from the lung base through the caudal extent of the kidneys. An appropriate entry site was identified and a ramez made on the skin. The skin overlying the [ right kidney] posterior flank was prepped and draped in sterile fashion. 1% lidocaine was administered subcutaneously for local anesthesia. Initially, a 22 gauge needle was advanced and CT images confirmed good needle position. The 22 gauge needle was then exchanged for an 17 gauge introducer needle which was advanced. Repeat CT images confirmed good needle trajectory and tip position. The introducer needle was then advanced into the periphery of the inferior renal pole, and CT images were again obtained to confirm exact tip location. The inner stylet of the introducer needle was then removed and an 18 gauge coaxial needle was advanced thru the introducer needle and biopsy performed. A total of [ 4] passes were performed and the specimen collected was sent to Pathology for further evaluation. The needle was withdrawn. Hemostasis was achieved with manual compression and a sterile dressing was applied. Repeat CT images of the biopsy area was performed which demonstrated no gross bleeding or hematoma. The patient tolerated the procedure well without immediate complications. The patient was transported to the [floor/recovery area] in stable condition. CT/Biopsy/Inj or Needle Placement IMPRESSION: Successful CT guided percutaneous kidney biopsy. Electronically Signed: Hemant Carrasquillo MD at 10:41 EDT ,
[2024-01-11] MEDS: proCHLORPERazine 10 MG/2 ML Vial 5 MG IV (08:03)
--- NOTE | 2024-01-11 08:40 | NURSING ---
Patient left the unit for CT guided kidney biopsy.
[2024-01-11] MEDS: Midazolam 2 MG/2 ML Syringe IV (09:17)
[2024-01-11] MEDS: fentaNYL 100 MCG/2 ML Ampul IV (09:25)
[2024-01-11] MEDS: 0.9% Normal Saline (250mL Bag) 250 ML 15 ML IV (09:27)
[2024-01-11] MEDS: Lidocaine 2% (20 ml mdv) 20 ML Vial INFILT (09:27)
[2024-01-11] MEDS: Amiodarone 150 MG in Dextrose 5%-Water (100mL Bag) 100 ML 600 MG IV BOLUS (09:49)
--- NOTE | 2024-01-11 09:50 | NURSING ---
Patient returned to unit
--- NOTE | 2024-01-11 09:51 | EKG12_ITS ---
Test Reason : abnormal rhythm Blood Pressure : / mmHG Vent. Rate : 130 BPM Atrial Rate : 260 BPM P-R Int : 000 ms QRS Dur : 076 ms QT Int : 276 ms P-R-T Axes : 220 048 -03 degrees QTc Int : 406 ms Atrial flutter with 2:1 A-V conduction Low voltage QRS Nonspecific ST and T wave abnormality Abnormal ECG When compared with ECG of 10-JAN-2024 03:34, Atrial flutter has replaced Sinus rhythm Vent. rate has increased BY [address] now depressed in Inferior leads ST now depressed in Anterior leads T wave inversion now evident in Anterior leads Confirmed by LOBO LYNN, MARIAN ([id number]), editor book JODIE JANE ([id number]) on 01/15/2024 10:13:18 AM Referred By: Obie Confirmed By:MARIAN DIAMOND MD
--- NOTE | 2024-01-11 09:58 | NURSING ---
Procedure complete at 0934. Pt immediately transferred to ICU bed and taken to ICU by WILBUR Rahman. Pt's ICU monitor remained on at all times with VS continually monitored. Pt's HR remained between 120-150bpm throughout entire transfer. Pt's SpO2 did not consistently read throughout transport, pt's O2 increased to 4L. When asked to take deep breaths in through her nose pt was able to comply. Pt's b/p remained between 90-105 systolic. Upon reaching the ICU the pt's monitor was then attached to her room monitor and all VS that had been taken throughout procedure and transport showed ? WILBUR Rahman was met by pt's primary PART TIMEMary who received verbal report of patient.
[2024-01-11] MEDS: Amiodarone 360 MG in Dextrose 5% Viaflo Bag 192.8 ML 33.3 MG CONT INF (10:00)
[2024-01-11] MEDS: Pantoprazole Sodium 40 MG in 0.9% Normal Saline (100mL MB+) 100 ML 330 MG IV (10:55)
[2024-01-11] MEDS: Lidocaine 5% Patch 1 PATCH TOPICAL (11:26)
[2024-01-11] MEDS: Glycerin/Hypromellose/PEG400 15 ml Bottle 1 DRP EACH EYE ×2 (11:29→20:34)
[2024-01-11] MEDS: SEVELAMER CARBONATE 800 MG TABLET PO ×2 (11:40→20:29)
[2024-01-11] MEDS: Ensure Plus High Protein 120 ML LIQUID PO ×2 (11:40→20:29)
--- NOTE | 2024-01-11 11:41 | PCM.PN.REN ---
Subjective Subjective Resting in bed. at bedside. Denies any complaints. Just returned back from kidney biopsy procedure. Objective Data Objective Data Vital Signs: Vital Signs Temp Pulse Resp BP Pulse Ox O2 Del Method O2 Flow Rate 96.5 F L 120 H 23 H 104/71 100 Nasal Cannula 2 01/11/24 09:51 01/11/24 10:00 01/11/24 10:00 01/11/24 10:00 01/11/24 10:00 01/11/24 10:00 01/11/24 10:00 Oxygen Flow Rate (L/min) 2 Oxygen Delivery Method Nasal Cannula Weight: 66.6 kg Body Mass Index (BMI) 26.8 Intake & Output: Intake and Output for Last 24 Hours 01/09/24 01/10/24 01/11/24 23:59 23:59 23:59 Intake Total 2911.40 / 2911.40 255.28 / 255.28 Output Total 0 / 0 Balance 2886.40 / 2886.40 255.28 / 255.28 Lab / Micro Data 01/11/24 03:30 01/11/24 03:30 Labs: Laboratory Results - last 24 hr 01/10/24 19:45: U Random Total Protein 313.1 H, Ur Random Sodium 50, Urine Creatinine 44.90 01/10/24 19:45: Urine Creatinine 45.20, Protein/Creatinin Ratio 6973 H 01/11/24 03:30: WBC 13.1 H, RBC 3.30 L, Hgb 10.3 L, Hct 31.2 L, MCV 94.5, MCH 31.2, MCHC 33.0, RDW Std Deviation 85.9 H, RDW Coeff of Shaniqua 25.5 H, Plt Count 199, MPV 10.3, Sodium 128 L, Potassium 4.5, Chloride 95 L, Carbon Dioxide 16.0 L, BUN 123 H*, Creatinine 8.30 H*, Estim Creat Clear Calc 5.45, Est GFR (MDRD) Af Amer 6 L, Est GFR (MDRD) Non-Af 5 L, BUN/Creatinine Ratio 14.8, Glucose 94, Calcium 7.1 L, Phosphorus 9.3 H*, Albumin 1.8 L Radiography Diagnostic Testing: Radiology Impression Biopsy CT 01/11/24 07:26 IMPRESSION: Successful CT guided percutaneous kidney biopsy. Electronically Signed: Hemant Carrasquillo MD at 10:41 EDT , Physical Exam Narrative Alert awake oriented x 3 no obvious distress s1s2 no murmurs lungs clear abdomen soft Trace edema bilateral lower leg Assessment & Plan Assessment/Plan (1) RIN (acute kidney injury): (2) Hyponatremia: PLAN: Plan Impression/Plan: The patient is a with past history of 73-year-old female with past history of Sjogren's syndrome, pulmonary hypertension, and mitral valve regurgitation. She presented to the hospital 01/07/2024 with epistaxis and generalized weakness. During the evaluation in the ED, the patient was found to have RIN with serum creatinine of 7.08 mg/dL. Nephrology is following for RIN. Other comorbidities include newly diagnosed Sjogren's syndrome, moderate pulmonary hypertension. Swallowing difficulty, generalized weakness, following with gastroenterology, neuromuscular disorders, rheumatology based out of [place]. She was at [facility] recently. She was on Lasix for volume overload, ibuprofen for pain, Bactrim for antibiotic prophylaxis prior to admission. It appears she has some a significant form of Sjogren's syndrome, possibly mixed connective tissue disorder. 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 Andry Babb. - Acute kidney injury. Baseline creatinine is normal as recent as November 2023 (creatinine was 0.78 mg/dL on 11/18/2023). Serum creatinine was 7.34 mg/dL on presentation on 01/07/2024. CT abdomen without any hydronephrosis. Urinalysis with significant proteinuria and hematuria microscopic. Given active urine, glomerulonephritis or vasculitis is possible therefore patient underwent kidney biopsy 01/10. Urine protein creatinine ratio 6973 mg/g. Pending ANCA antibodies, C3, C4, Cryoglobulin. Despite volume expansion, serum creatinine increased to 8.30mg/dL, BUN 123 today. UOP only 25ml documented yesterday which was straight cath. Given worsening kidney function, essentially anuric discussed with patient and her patient is heading towards needing renal replacement therapy. Risks and benefits of hemodialysis, temporary hemodialysis line explained with patient and her . Patient is in agreement with moving forward with renal placement therapy. Patient will have temporary HD catheter placed with hemodialysis following. - Hyponatremia suspect secondary to oliguric RIN. Sodium 128 today (125 on admission). - Hyperphosphatemia secondary to RIN; patient started on renvela. Will monitor phosphorus levels. - Afib with RVR with borderline bps; patient was transferred to ICU over the weekend for closer monitoring. On amiodarone gtt. BPs were stable enough that she did not need to be started on levophed. - discussed nephrology plan with Dr. Ragland.
--- NOTE | 2024-01-11 11:57 | CASEMGMT ---
Insurance review for hospitals In-network with Medicare insurance if transfer is recommended is as follows: [facility], [place], [facility], [facility], [facility], [facility], [facility], and . Dorcas Lyle, Discharge Planning Asst.
--- NOTE | 2024-01-11 13:00 | RAD_ITS ---
STUDY: X-RAY CHEST REASON FOR EXAM: Female, 73 years old. Internal jugular line placement. TECHNIQUE: Single AP portable view of the chest. COMPARISON: Comparison is made with prior study dated January 07, 2024. FINDINGS: A right-sided internal jugular venous catheter has been placed. The tip is in the right atrium. Progressive infiltrate in the left midlung. Progressive infiltrate at the left lung base. Residual vascular congestion and CHF. Normal size heart. Normal mediastinum and caro. Normal visualized pulmonary arteries. There is atherosclerotic tortuosity of the aortic arch and descending thoracic aorta. There are diffuse degenerative changes of the visualized thoracic spine. Normal visualized ribs, clavicles, and shoulders. There is no demonstrated abnormality of the visualized soft tissue structures of the upper abdomen. RAD/Chest 1 View (Portable) IMPRESSION: The tip of the right internal jugular venous catheter is in the right atrium. Progressive infiltrate in the left midlung and left lung base. Superimposed CHF. Electronically Signed: Hemant Carrasquillo MD at 13:52 EDT ,
[2024-01-11] MEDS: Heparin 10,000 UNITS/10 ML Vial 1000 UNITS IV (13:09)
--- NOTE | 2024-01-11 13:12 | OP.PCM_ITS ---
Problems Associated Problem List Diagnoses (1) RIN (acute kidney injury): Operative Report Date of Procedure: 01/11/24 Temporary hemodialysis catheter line placement procedure note Indication: Hemodialysis Procedure: A time-out was completed to verify correct patient, indication, medic ation allergies, procedure, coagulation studies, informed consent signed, and equipment needed. The patient was placed in the supine position for a central line placement to the rt IJ vein. The patients rt neck was prepped using chlorhexidine and a full body sterile drape was applied. 1% lidocaine was used to anesthetize the surrounding skin. A12fr 20 cm temporary hemodialysis catheter introduced into the internal jugular vein using the modified Seldinger technique with the assistance of ultrasound. The site was dilated up twice in a stepwise fashion. The catheter was threaded smoothly over the guidewire, the guidewire was removed easily, nonpulsatile blood returned. All ports were aspirated of air and flushed with sterile saline and locked with 1.3 cc you 1000 heparin each port. The catheter was sutured in place and covered with an occlusive dressing impregnated with chlorhexidine. Post-procedure: The patient tolerated the procedure well. Vital signs remained stable. EBL 5cc. No complications. Chest X Ray and confirmed tip placement and the absence of pneumothorax. Procedures Hospitalists Procedures: 64780 Insert Non-tunnel CV Cath
[2024-01-11 15:20] LABS: International Normalized Ratio 1.4; Partial Thromboplast Time 38.8 Seconds (24.1-36.2)
[2024-01-11] MEDS: PureFlow B 2K Dialysis Soln 1 BAG 6 BAG PF (17:03)
[2024-01-11] MEDS: 0.9% Normal Saline 1,000 ML IV.SOLN. 1000 ML OPERA.SITE (17:03)
[2024-01-11] MEDS: 0.9% Saline Lock 10 ML Syringe IV ×2 (17:03→18:56)
[2024-01-11] MEDS: Amiodarone 360 MG in Dextrose 5% Viaflo Bag 192.8 ML 16.7 MG CONT INF (17:09)
--- NOTE | 2024-01-11 17:09 | DCINST_ITS ---
Discharge Instructions Diet Discharge Diet: Renal Diet Follow Up Care Test Results: Test results from this visit will be discussed in further detail at your follow- up appointment, if applicable. Discharge Plan Admission Admit Date/Time: 01/07/24 18:10 Primary Reason for Your Visit: Renal failure Attending Provider: Charity Ragland Primary Care Provider: Fady Robertson Consulting Providers: Raulito Esposito; Fidel Garcia; Leif Kidd Instructions Patient Instructions: ATIF food service specialist Instructions for Kidney Biopsy, ATIF RN Procedural Sedation Discharge Orders/Prescriptions Prescriptions: New Amiodarone [Cordarone] 360 MG Dextrose 5% Viaflo Bag 192.8 ML 0.5 mg/min CONT INF Ordered By: Charity Ragland MD Last Taken: 01/11/24 17:09 16.7 mls/hr ipratropium-albuterol 0.5 mg-3 mg(2.5 mg base)/3 mL Solution For Nebulization 3 ml inhalation Q4H.RT PRN (Reason: Shortness Of Breath) Qty: 0 0RF pantoprazole 40 mg Recon Soln 40 mg IV DAILY Qty: 0 0RF sevelamer carbonate 800 mg Tablet 800 mg PO TIDCM Qty: 0 0RF Continued acetaminophen [8 Hour Pain Reliever] 650 mg tablet extended release 1,300 mg PO Q12H PRN (Reason: pain) albuterol sulfate 90 mcg/actuation HFA aerosol inhaler 2 puff INHALATION Q4H PRN (Reason: shortness of breath or wheezing) Systane (propylene glycol) 0.4-0.3 % drops 1 drp EACH EYE TID PRN (Reason: dry eye(s)) cholecalciferol (vitamin D3) [D3-2000] 50 mcg (2,000 unit) capsule 50 mcg PO DAILY magnesium oxide 400 mg magnesium tablet 400 mg PO DAILY Patient Comments: PT TAKES GUMMY FORM Discontinued furosemide 40 mg tablet 40 mg PO DAILY PRN (Reason: edema) sulfamethoxazole-trimethoprim 800-160 mg tablet 1 tab PO MOWEFR ibuprofen 200 mg tablet 400 mg PO Q6H PRN (Reason: pain) prednisone 10 mg tablet 10 mg PO DAILY Qty: 45 0RF Patient Comments: PT ON 5 TABS DAILY SINCE 01/01/24 Rx Instructions: 5 po qd x 3 days, 4 po qd x 3 days, 3 po qd x 3 days, 2 po qd x 3 days, 1 po qd x 3 days Referrals / Follow Up: Fady Robertson MD [Primary Care Provider] - Disposition Disposition (needs filled in before D/C Order can be placed): [facility]
--- NOTE | 2024-01-11 18:04 | PCM.DC.SUM ---
Providers Date of Admission: 01/07/24 Date of Discharge: 01/11/24 Primary Care Physician: Dr. Fady Robertson MD Consultations 01/07/24 17:44 Consult: Nephrology Routine Consulting Provider: Raulito Esposito Reason for Consult: Severe Hyperkalemia EMERGENT Consult: Yes Notified: Yes Date Notified: 01/07/24 Time Notified: 17:44 Method of Notification: ED Physician Initiated 01/07/24 20:35 Consult: Nephrology Routine Consulting Provider: Raulito Esposito Reason for Consult: RIN with hyperkalemia EMERGENT Consult: No Notified: Yes Date Notified: 01/07/24 Time Notified: 18:18 Method of Notification: ED Physician Initiated 01/10/24 07:40 Consult: Fire Boat Engineer / Pulmonary Medicine Routine Consulting Provider: Intensivists/Pulmonary Med Reason for Consult: Hypotension EMERGENT Consult: No Notified: Yes Date Notified: 01/10/24 Time Notified: 06:58 Method of Notification: Text Reason For Visit: RIN HYPERKALEMIA Diagnosis Discharge Diagnosis (1) RIN (acute kidney injury): Status: Acute Code(s): N17.9 - Acute kidney failure, unspecified Plan #acute renal failure # Acute metabolic acidosis with hyperkalemia # A-fib with RVR and hypotension?resolved # Acute on chronic anemia # Hyponatremia # Sjogren's and rheumatologic disease Medications at Discharge Home Medications acetaminophen 650 mg tablet,extended release (8 Hour Pain Reliever) 1,300 mg PO Q12H PRN pain 01/07/24 albuterol sulfate 90 mcg/actuation aerosol inhaler 2 puff inhalation Q4H PRN shortness of breath or wheezing 01/07/24 cholecalciferol (vitamin D3) 50 mcg (2,000 unit) capsule (D3-2000) 50 mcg PO DAILY 01/07/24 magnesium oxide 400 mg PO DAILY 01/07/24 peg 400-propylene glycol 0.4 %-0.3 % eye drops (Systane (propylene glycol)) 1 drp EACH EYE TID PRN dry eye(s) 01/07/24 Amiodarone [Cordarone] 360 mg 0.5 mg/min CONT INF 01/11/24 ipratropium 0.5 mg-albuterol 3 mg (2.5 mg base)/3 mL nebulization soln 3 ml inhalation Q4H.RT PRN Shortness Of Breath #0 mL 01/11/24 pantoprazole 40 mg intravenous solution 40 mg IV DAILY #0 ea 01/11/24 sevelamer carbonate 800 mg tablet 800 mg PO TIDCM #0 tabs 01/11/24 Hospital Course Procedures - (Temporary dialysis catheter and HD) Summary of Care Provided Minutes Spent on Discharge: 35 Hospital Course: 73-year-old female history of Sjogren's presented to [facility] 01/07/2024 with increasing weakness for 4 to 6 months with new nosebleeds and difficulty with ambulation as well as dyspnea on exertion. She follows with rheumatology in [place] and has Sjogren's. In the ED she was found to have elevated BUN/creatinine/hyperkalemia/hyponatremia and was very weak. Patient was admitted and nephrology consulted, there had been no indication for urgent hemodialysis and patient's home furosemide, ibuprofen, Bactrim were all held. Patient continued to decline and had kidney biopsy 01/10 and ultimately required temporary dialysis catheter and initiation of hemodialysis 01/10. Discussed with nephrology who recommended transfer to [place] for higher level of care given her complex rheumatologic picture and clinical worsening. Of note patient did go into A-fib with RVR and had hypotension and was transferred to ICU. Converted with Cardizem and IV amiodarone but blood pressures were low so she was held in ICU. This improved and suspected secondary to acute critical illness but will need further monitored potentially further workup and management pending clinical course however patient transferred to [place] for further care. Transferred after first dialysis treatment. Physical Exam Narrative General: Alert, oriented, no apparent distress HEENT: Atraumatic, normocephalic Eyes: Anicteric, normal conjunctiva, extraocular movements grossly intact Neck: Supple Respiratory: Clear to auscultation bilaterally, normal respiratory effort Cardiovascular: At time of exam regular rate and rhythm GI: Soft, nontender, nondistended Extremities: No edema Musculoskeletal: Moving all extremities Neuro: No overt focal neurological deficits Skin: No rashes appreciated Psych: Cooperative Weight / BMI Weight Weight: 72.4 kg Body Mass Index (BMI) 29.3 ABG / Lab / Microbiology Data 01/11/24 03:30 01/11/24 03:30 Laboratory: Laboratory Results - last 24 hr 01/10/24 19:45: U Random Total Protein 313.1 H, Ur Random Sodium 50, Urine Creatinine 44.90 01/10/24 19:45: Urine Creatinine 45.20, Protein/Creatinin Ratio 6973 H 01/11/24 03:30: WBC 13.1 H, RBC 3.30 L, Hgb 10.3 L, Hct 31.2 L, MCV 94.5, MCH 31.2, MCHC 33.0, RDW Std Deviation 85.9 H, RDW Coeff of Shaniqua 25.5 H, Plt Count 199, MPV 10.3, Sodium 128 L, Potassium 4.5, Chloride 95 L, Carbon Dioxide 16.0 L, BUN 123 H*, Creatinine 8.30 H*, Estim Creat Clear Calc 5.45, Est GFR (MDRD) Af Amer 6 L, Est GFR (MDRD) Non-Af 5 L, BUN/Creatinine Ratio 14.8, Glucose 94, Calcium 7.1 L, Phosphorus 9.3 H*, Albumin 1.8 L 01/11/24 14:50: PT 17.0 H, INR 1.4, APTT 38.8 H Radiography Diagnostic Testing: Radiology Impression Biopsy CT 01/11/24 07:26 IMPRESSION: Successful CT guided percutaneous kidney biopsy. Electronically Signed: Hemant Carrasquillo MD at 10:41 EDT , Chest X-Ray 01/11/24 13:00 IMPRESSION: The tip of the right internal jugular venous catheter is in the right atrium. Progressive infiltrate in the left midlung and left lung base. Superimposed CHF. Electronically Signed: Hemant Carrasquillo MD at 13:52 EDT , D/C Instructions Discharge Diet: Renal Diet Meaningful Use Info Meaningful Use Meaningful Use Diagnoses (Choose all that apply): None applicable Ischemic Stroke Statin Dosing Therapy Reference: STATIN DOSE THERAPY REFERENCE: * Patients > 75 years receive moderate or high dose statin therapy. * Patients 75 years or YOUNGER should receive HIGH intensity statin dose unless contraindicated. You will be required to document reason for non-treatment if statin daily dose does not meet guidelines. HIGH DOSE STATIN THERAPY DAILY Atorvastatin > than or = to 40 mg Rosuvastatin > than or = to 20 mg Amlodipine + Atorvastatin > than or = to 2.5/40 mg Ezetimibe + Simvastatin 10/80 mg Simvastatin 80mg Discharge Plan Admission Admit Date/Time: 01/07/24 18:10 Primary Reason for Your Visit: Renal failure Attending Provider: Charity Ragland Primary Care Provider: Fady Robertson Consulting Providers: Raulito Esposito; Fidel Garcia; Leif Kidd Instructions Patient Instructions: ATIF electronics assembler Instructions for Kidney Biopsy, ATIF RN Procedural Sedation Discharge Orders/Prescriptions Prescriptions: New Amiodarone [Cordarone] 360 MG Dextrose 5% Viaflo Bag 192.8 ML 0.5 mg/min CONT INF Ordered By: Charity Ragland MD Last Taken: 01/11/24 17:09 16.7 mls/hr ipratropium-albuterol 0.5 mg-3 mg(2.5 mg base)/3 mL Solution For Nebulization 3 ml inhalation Q4H.RT PRN (Reason: Shortness Of Breath) Qty: 0 0RF pantoprazole 40 mg Recon Soln 40 mg IV DAILY Qty: 0 0RF sevelamer carbonate 800 mg Tablet 800 mg PO TIDCM Qty: 0 0RF Continued acetaminophen [8 Hour Pain Reliever] 650 mg tablet extended release 1,300 mg PO Q12H PRN (Reason: pain) albuterol sulfate 90 mcg/actuation HFA aerosol inhaler 2 puff INHALATION Q4H PRN (Reason: shortness of breath or wheezing) Systane (propylene glycol) 0.4-0.3 % drops 1 drp EACH EYE TID PRN (Reason: dry eye(s)) cholecalciferol (vitamin D3) [D3-2000] 50 mcg (2,000 unit) capsule 50 mcg PO DAILY magnesium oxide 400 mg magnesium tablet 400 mg PO DAILY Patient Comments: PT TAKES GUMMY FORM Discontinued furosemide 40 mg tablet 40 mg PO DAILY PRN (Reason: edema) sulfamethoxazole-trimethoprim 800-160 mg tablet 1 tab PO MOWEFR ibuprofen 200 mg tablet 400 mg PO Q6H PRN (Reason: pain) prednisone 10 mg tablet 10 mg PO DAILY Qty: 45 0RF Patient Comments: PT ON 5 TABS DAILY SINCE 01/01/24 Rx Instructions: 5 po qd x 3 days, 4 po qd x 3 days, 3 po qd x 3 days, 2 po qd x 3 days, 1 po qd x 3 days Referrals / Follow Up: Fady Robertson MD [Primary Care Provider] - Disposition Disposition (needs filled in before D/C Order can be placed): Acute Care Hospital Charges/Coding Visit Charges Inpatient E&M: 17855 Disch Hosp >30min
[2024-01-11] MEDS: Heparin 10,000 UNITS/10 ML Vial IV (18:24)
--- NOTE | 2024-01-11 21:34 | NURSING ---
Physicians arrived to unit to take pt to [facility] in [place]. Report given by this RN. Pt left unit w/o complications.
[2024-01-12 08:12] LABS: Cytoplasmic Ab (C-ANCA) <1:20 titer (Neg:<1:20); Perinuclear Ab (P-ANCA) <1:20 titer (Neg:<1:20)
[2024-01-18 16:09] LABS: Complement C3 108 mg/dL (82-167)
== END 2024-01-11 22:00 | disposition short-term general hospital (02) | DRG 683 ==
LOC: ED 17:19 → PCU 18:59 → ICU 01-10 07:44
PROVIDERS: Family Medicine; Hospitalist; Internal Medicine Nephrology; Nurse Practitioner Adult Health; Admitting Provider Internal Medicine; Emergency Provider Emergency Medicine; PCP Family Medicine; Visit Provider Internal Medicine
DX: N17.1 Acute kidney failure with acute cortical necrosis (principal); E87.1 Hypo-osmolality and hyponatremia; E87.21 Acute metabolic acidosis; D63.8 Anemia in other chronic diseases classified elsewhere; E83.39 Other disorders of phosphorus metabolism; I48.91 Unspecified atrial fibrillation; M35.02 Sjogren syndrome with lung involvement; I34.0 Nonrheumatic mitral (valve) insufficiency; E87.5 Hyperkalemia; E78.5 Hyperlipidemia, unspecified; R53.81 Other malaise; Z79.52 Long term (current) use of systemic steroids; Z79.899 Other long term (current) drug therapy
CPT/HCPCS: 36415; 71045; 71046; 74176; 74230; 77012; 80048; 80053; 80069; 81001; 82570; 82595; 82607; 82728; 82746; 83540; 83550; 83735; 84100; 84156; 84300; 84439; 84443; 85025; 85027; 85610; 85730; 86160; 86256; 88305; 88346; 88350; 90937; 92526; 92611; 93005; 94668; 96374; 97116; 97163; 97166; 97530; 97535; 99156; 99285; J7030; J7040; J7050; P9612; A4216; C1752; G0257; J0612